=== PATIENT | male | born 1975 ===

== ENCOUNTER 2016-07-26 06:30 | Emergency (ER) | payer MEDICAID, OTHER ==
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
[2016-07-26 06:35] VITALS: BMI 21.8
[2016-07-26 06:42] VITALS: RESP 20; TEMP 98.2; O2SAT 100
[2016-07-26 07:37] VITALS: BP 126/84; PULSE 90
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
--- NOTE | 2016-07-26 08:23 | RAD ---
HISTORY: fall COMPARISON: 02/23/2016 TECHNIQUE: Chest PA and lateral FINDINGS: LUNGS: No active pulmonary disease. PLEURA: No significant pleural effusion identified. No pneumothorax apparent. CARDIOVASCULAR: Normal. OSSEOUS STRUCTURES: No significant abnormalities. VISUALIZED UPPER ABDOMEN: Normal. OTHER FINDINGS: None. IMPRESSION: No active disease.
== END 2016-07-26 07:57 ==
LOC: ED 06:30
DX: T14.8 Other injury of unspecified body region (principal); X58.XXXA Exposure to other specified factors, initial encounter; Y92.89 Other specified places as the place of occurrence of the external cause; Z65.3 Problems related to other legal circumstances

== ENCOUNTER 2016-10-01 01:41 | Inpatient (IN) | payer MEDICAID, OTHER ==
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
[2016-10-01 03:02] LABS: HEMOGLOBIN 14.3 gm/dL (14.0-18.0); MEAN CELL VOLUME 97.9 fL (80.0-105.0); MEAN CORPUSCULAR HEMOGLOBIN 33.5 pg (25.0-35.0); MEAN CORPUSCULAR HGB CONC 34.2 g/dl (31.0-37.0); MEAN PLATELET VOLUME 8.6 fl (7.0-11.0); RBC 4.27 10^6/uL (3.5-6.1); RED CELL DISTRIBUTION WIDTH 12.5 % (11.5-14.5); WHITE BLOOD COUNT 9.8 10^3/ul (4.5-11.0)
[2016-10-01 03:07] LABS: ALB/GLOB RATIO 1.3 (1.1-1.8); ALBUMIN 4.5 g/dL (3.0-4.8); ALT/SGPT 71 U/L (7-56); AST/SGOT 91 U/L (15-59); BLOOD UREA NITROGEN 11 mg/dL (7-21); CALCIUM 9.1 mg/dL (8.4-10.5); GFR AFRICAN-AMERICAN > 60; GFR NON-AFRICAN AMERICAN > 60
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
[2016-10-01] MEDS ORDERED: Amoxicillin-Clav 875-125 mg Tab PO STA (04:56)
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
[2016-10-01] MEDS: TDAP Vaccine 0.5 mL Syr IM ONE ×2 (06:35→06:47)
[2016-10-01] MEDS: Morphine 2 mg/ml ISec IVP PRN ×2 (06:50→16:59)
[2016-10-01] MEDS: Multivitamin With Minerals Tab PO SCH (08:15)
[2016-10-01] MEDS ORDERED: Multivitamin (MVI) 10 ML, Thiamine 100 MG, Folic Acid 1 MG in Sodium Chloride 0.9% 1,00... IV ONE (08:59)
[2016-10-01 09:35] LABS: BASO # 0.03 K/mm3 (0.0-2.0); BASO % 0.3 % (0.0-3.0); EOS % 0.2 % (1.5-5.0); GRAN % 70.4 % (50.0-68.0); HEMOGLOBIN 13.8 gm/dL (14.0-18.0); LYMPH # 2.3 (1.2-3.4); LYMPH % 20.3 % (22.0-35.0); MEAN CELL VOLUME 96.9 fL (80.0-105.0); MEAN CORPUSCULAR HEMOGLOBIN 32.7 pg (25.0-35.0); MEAN CORPUSCULAR HGB CONC 33.7 g/dl (31.0-37.0); MEAN PLATELET VOLUME 8.6 fl (7.0-11.0); MONO % 8.8 % (1.0-6.0); PLATELET COUNT 202 10^3/uL (120.0-450.0); RBC 4.22 10^6/uL (3.5-6.1); RED CELL DISTRIBUTION WIDTH 12.4 % (11.5-14.5); WHITE BLOOD COUNT 11.5 10^3/ul (4.5-11.0)
--- NOTE | 2016-10-01 10:40 | CARD ---
APPROVED REPORT EKG Measurement Heart [id number] <Conclusion> Normal sinus rhythm Possible Left atrial enlargement Borderline ECG
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
--- NOTE | 2016-10-01 12:44 | RAD ---
HISTORY: medical clearance COMPARISON: October 01, 2016. CT thorax FINDINGS: LUNGS: No active pulmonary disease. PLEURA: No significant pleural effusion identified, no pneumothorax apparent. CARDIOVASCULAR: Normal. OSSEOUS STRUCTURES: No significant abnormalities. VISUALIZED UPPER ABDOMEN: Normal. OTHER FINDINGS: None. IMPRESSION: No active disease.
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
[2016-10-01] MEDS ORDERED: Magnesium Sulfate 2 GM in Sodium Chloride 0.9% 100 ML IVPB ONE (18:17)
[2016-10-01 18:28] VITALS: BMI 22.0
[2016-10-02 07:46] LABS: BASO # 0.01 K/mm3 (0.0-2.0); BASO % 0.1 % (0.0-3.0); GRAN # 8.72 (1.4-6.5); GRAN % 87.2 % (50.0-68.0); HEMOGLOBIN 15.3 gm/dL (14.0-18.0); LYMPH # 1.1 (1.2-3.4); LYMPH % 10.8 % (22.0-35.0); MEAN CELL VOLUME 97.2 fL (80.0-105.0); MEAN PLATELET VOLUME 8.7 fl (7.0-11.0); MONO # 0.2 (0.1-0.6); MONO % 1.9 % (1.0-6.0); PLATELET COUNT 239 10^3/uL (120.0-450.0); RBC 4.63 10^6/uL (3.5-6.1); RED CELL DISTRIBUTION WIDTH 12.3 % (11.5-14.5)
[2016-10-02 08:17] LABS: ALB/GLOB RATIO 1.3 (1.1-1.8); ALBUMIN 4.4 g/dL (3.0-4.8); ALT/SGPT 53 U/L (7-56); AST/SGOT 46 U/L (15-59); BLOOD UREA NITROGEN 12 mg/dL (7-21); CALCIUM 9.3 mg/dL (8.4-10.5); GFR AFRICAN-AMERICAN > 60; GFR NON-AFRICAN AMERICAN > 60
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
--- NOTE | 2016-10-02 09:34 | CT ---
PROCEDURE: CT HEAD WITHOUT CONTRAST. HISTORY: f/u ? ich COMPARISON: 10/01/2016 TECHNIQUE: Axial computed tomography images were obtained through the head/brain without intravenous contrast. Radiation dose: Total exam DLP = 688 mGy-cm. This CT exam was performed using one or more of the following dose reduction techniques: Automated exposure control, adjustment of the mA and/or kV according to patient size, and/or use of iterative reconstruction technique. FINDINGS: HEMORRHAGE: There is a decrease in the amount of cortical and subarachnoid hemorrhage adjacent to the right-sided skull fracture BRAIN: No mass effect or edema. No atrophy or chronic microvascular ischemic changes. VENTRICLES: Unremarkable. No hydrocephalus. CALVARIUM: There is a comminuted mildly depressed fracture of the skull on the right side involving the temporal bone and frontal bone. PARANASAL SINUSES: Unremarkable as visualized. No significant inflammatory changes. MASTOID AIR CELLS: Unremarkable as visualized. No inflammatory changes. OTHER FINDINGS: None. IMPRESSION: Comminuted right-sided skull fracture. There is a decrease in the cortical and subarachnoid hemorrhage adjacent to the fracture site compared to initial study
[2016-10-02] MEDS: Multivitamin With Minerals Tab PO SCH (09:58)
[2016-10-02] MEDS: Pantoprazole 40 mg EC Tab PO SCH (09:58)
[2016-10-02 10:34] VITALS: O2SAT 100
--- NOTE | 2016-10-02 10:46 | MRI ---
PROCEDURE: MRI BRAIN WITHOUT CONTRAST HISTORY: brain contusion check for axonal injury COMPARISON: 10/01/2016 TECHNIQUE: Multiplanar, multisequence MR images of the brain were obtained without intravenous contrast enhancement. FINDINGS: HEMORRHAGE: Minimal residual hemorrhage in the right lateral frontal lobe. DWI: No evidence of an acute or early subacute infarction. BRAIN PARENCHYMA: No mass effect or edema. No atrophy or chronic microvascular ischemic changes. VENTRICLES: Unremarkable. No hydrocephalus. CRANIUM: Unremarkable. ORBITS: Grossly unremarkable. PARANASAL SINUSES/MASTOIDS: Clear VASCULAR SYSTEM: Skull base flow voids intact. OTHER FINDINGS: None. IMPRESSION: Minimal residual hemorrhage in the right lateral frontal lobe.
--- NOTE | 2016-10-02 11:09 | CP.PCM.PN ---
Subjective - Date & Time of Evaluation Date of Evaluation: 10/02/16 Time of Evaluation: 11:06 - Subjective Subjective: Mr. Montgomery was seen and examined today at bedside. He had occasional left arm shaking/rhythmic movements. No acute events overnight. He was awake, alert , conversant and followed commands normally. Objective - Vital Signs/Intake and Output Vital Signs (last 24 hours): Temp Pulse Resp BP Pulse Ox 97.5 F L 78 14 128/83 100 10/02/16 06:00 10/02/16 10:00 10/02/16 10:00 10/02/16 10:00 10/02/16 10:00 Intake and Output: 10/02/16 10/02/16 06:59 18:59 Intake Total 480 1020 Output Total 600 Balance 480 420 - Medications Medications: Current Medications Folic Acid (Folic Acid) 1 mg PO DAILY [facility] Last Admin: 10/02/16 09:57 Dose: 1 mg Lorazepam (Ativan) 2 mg IVP Q4H PRN; Protocol PRN Reason: Symptoms of alcohol withdrawl Last Admin: 10/01/16 21:58 Dose: 2 mg Morphine Sulfate (Morphine) 1 mg IVP Q4H PRN PRN Reason: Pain, severe (8-10) Last Admin: 10/01/16 16:59 Dose: 1 mg Multivitamins/Minerals (Therapeutic-M Tab) 1 tab PO 0800 [facility] Last Admin: 10/02/16 09:58 Dose: 1 tab Pantoprazole Sodium (Protonix Ec Tab) 40 mg PO ACB [facility] Last Admin: 10/02/16 09:58 Dose: 40 mg Thiamine HCl (Vitamin B1 Tab) 100 mg PO DAILY [facility] Last Admin: 10/02/16 09:58 Dose: 100 mg - Labs Labs: 10/02/16 07:41 10/02/16 07:41 - Neurological Exam Neurological Exam: Awake, CN II-XII Intact, Oriented x3, Reflexes Normal Neuro motor strength exam: Left Upper Extremity: 5, Right Upper Extremity: 5, Left Lower Extremity: 5, Right Lower Extremity: 5 Additional comments: Occasional left arm shaking movements. Assessment and Plan (1) Skull fracture with cerebral contusion Assessment & Plan: There is concern that he may be having focal seizures due to the right temporal lobe contusion. I will start him on prophylaxis with Keppra 500 mg Q12 hours. Continue conservative management. I reviewed the MRI and it appears to be improving. Will cancel the CT head for today since the MRI was done and is adequate. Status: Acute
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
[2016-10-02] MEDS ORDERED: Oxymetazoline 0.05% Nasal Spray (30 ml) NS SCH (13:30)
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
--- NOTE | 2016-10-02 16:03 | CP.PCM.PN ---
Subjective - Date & Time of Evaluation Date of Evaluation: 10/02/16 Time of Evaluation: 15:00 - Subjective Subjective: EEG REPORT: CONDITION OF THIS RECORDING: DROWSY DIAGNOSIS: EVALUATE FOR SEIZURE MEDICATIONS:l REVIEWED BY NURSE'S RECONCILIATION INTERPRETATION: THIS IS A 16 CHANNEL INTERNATIONAL RECORDING. THE BACKEND OF THIS TRACING WAS COMPOSED OF 68-9 CYCLES PER SECOND. THERE WAS SMALL AMOUNT OF BETA ACTIVITY OF 16-20 CPS IN THE RECORDING AND SMALL AMOUNT OF THETA ACTIVITY OF 5-7 CPS SEEN IN THIS TRACING. DROWSINESS WAS CHARACTERIZED BY MIXED BETA AND THETA ACTIVITIES. SLEEP WAS CHARACTERIZED BY VERTEX TRANSIENT WAVE, SLEEP SPINDLES, AND B/L SLOWING. PHOTIC STIMULATION SHOWED NO CHANGE IN THE TRACING. NO PAROXYSMAL ACTIVITY NOTED IN THIS RECORDING. EMG ARTIFICAT WAS SEEN. CONCLUSION: THIS IS A NORMAL EEG. NO SEIZURE ACTIVITY. Diamante ADAMES MD Objective - Vital Signs/Intake and Output Vital Signs (last 24 hours): Temp Pulse Resp BP Pulse Ox 97.1 F L 88 20 119/74 100 10/02/16 12:00 10/02/16 14:00 10/02/16 12:00 10/02/16 12:00 10/02/16 10:00 Intake and Output: 10/02/16 10/02/16 06:59 18:59 Intake Total 480 1020 Output Total 600 Balance 480 420 - Medications Medications: Current Medications Folic Acid (Folic Acid) 1 mg PO DAILY [facility] Last Admin: 10/02/16 09:57 Dose: 1 mg Levetiracetam (Keppra) 500 mg PO BID [facility] Last Admin: 10/02/16 11:37 Dose: 500 mg Lorazepam (Ativan) 2 mg IVP Q4H PRN; Protocol PRN Reason: Symptoms of alcohol withdrawl Last Admin: 10/01/16 21:58 Dose: 2 mg Morphine Sulfate (Morphine) 1 mg IVP Q4H PRN PRN Reason: Pain, severe (8-10) Last Admin: 10/01/16 16:59 Dose: 1 mg Multivitamins/Minerals (Therapeutic-M Tab) 1 tab PO 0800 [facility] Last Admin: 10/02/16 09:58 Dose: 1 tab Oxymetazoline HCl (Afrin 0.05%) 0 ml NS BID [facility] Pantoprazole Sodium (Protonix Ec Tab) 40 mg PO ACB [facility] Last Admin: 10/02/16 09:58 Dose: 40 mg Thiamine HCl (Vitamin B1 Tab) 100 mg PO DAILY [facility] Last Admin: 10/02/16 09:58 Dose: 100 mg - Labs Labs: 10/02/16 07:41 10/02/16 07:41
[2016-10-02] MEDS: Oxymetazoline 0.05% Nasal Spray (30 ml) NS SCH (17:35)
[2016-10-02] MEDS ORDERED: levETIRAcetam Solution 100 MG/ML BOTTLE PO SCH (18:00)
[2016-10-03 07:01] LABS: HEMOGLOBIN 13.6 gm/dL (14.0-18.0); MEAN CELL VOLUME 97.8 fL (80.0-105.0); MEAN CORPUSCULAR HEMOGLOBIN 32.9 pg (25.0-35.0); MEAN CORPUSCULAR HGB CONC 33.7 g/dl (31.0-37.0); MEAN PLATELET VOLUME 8.8 fl (7.0-11.0); RBC 4.13 10^6/uL (3.5-6.1); RED CELL DISTRIBUTION WIDTH 12.6 % (11.5-14.5); WHITE BLOOD COUNT 10.2 10^3/ul (4.5-11.0)
[2016-10-03 07:16] LABS: ALB/GLOB RATIO 1.3 (1.1-1.8); ALBUMIN 3.7 g/dL (3.0-4.8); ALT/SGPT 45 U/L (7-56); AST/SGOT 27 U/L (15-59); BLOOD UREA NITROGEN 15 mg/dL (7-21); CALCIUM 8.9 mg/dL (8.4-10.5); GFR AFRICAN-AMERICAN > 60; GFR NON-AFRICAN AMERICAN > 60
[2016-10-03 08:45] VITALS: BP 118/78; RESP 18; TEMP 97.6
[2016-10-03] MEDS: Pantoprazole 40 mg EC Tab PO SCH (09:13)
[2016-10-03] MEDS: Oxymetazoline 0.05% Nasal Spray (30 ml) NS SCH (09:13)
[2016-10-03] MEDS: Multivitamin With Minerals Tab PO SCH (09:15)
[2016-10-03] MEDS: Morphine 2 mg/ml ISec IVP PRN (09:16)
[2016-10-03 12:12] VITALS: PULSE 60
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
== END 2016-10-03 16:49 | disposition home or self-care (01) | DRG 84 ==
LOC: ED 01:41 → ERH 04:57 → 2RSO 07:04 → 3RNO 10-02 18:55
PROVIDERS: ADMIT Internal Medicine; ATTEND Hospitalist
DX: S02.19XA Other fracture of base of skull, initial encounter for closed fracture (principal); S06.339A Contusion and laceration of cerebrum, unspecified, with loss of consciousness of unspecified duration, initial encounter; Y04.0XXA Assault by unarmed brawl or fight, initial encounter; R56.9 Unspecified convulsions; F10.10 Alcohol abuse, uncomplicated; F19.10 Other psychoactive substance abuse, uncomplicated; M25.511 Pain in right shoulder; H53.8 Other visual disturbances; Y90.1 Blood alcohol level of 20-39 mg/100 ml; F17.210 Nicotine dependence, cigarettes, uncomplicated; Y93.89 Activity, other specified; Y92.9 Unspecified place or not applicable; Y99.9 Unspecified external cause status; Z83.3 Family history of diabetes mellitus

== ENCOUNTER 2018-03-18 11:19 | Inpatient (IN) | payer MEDICAID, OTHER ==
[2018-03-18] MEDS ORDERED: Sodium Chloride 0.9% 1,000 ML IV SCH (11:45)
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
[2018-03-18 11:55] LABS: BASO # 0.03 K/mm3 (0.0-2.0); BASO % 0.4 % (0.0-3.0); EOS # 0.1 (0.0-0.7); EOS % 1.2 % (1.5-5.0); GRAN # 4.03 (1.4-6.5); GRAN % 54.9 % (50.0-68.0); HEMOGLOBIN 14.8 g/dL (14.0-18.0); LYMPH # 2.7 (1.2-3.4); LYMPH % 36.2 % (22.0-35.0); MEAN CORPUSCULAR HEMOGLOBIN 33.1 pg (25.0-35.0); MEAN CORPUSCULAR HGB CONC 33.8 g/dl (31.0-37.0); MEAN PLATELET VOLUME 8.5 fl (7.0-11.0); MONO # 0.5 (0.1-0.6); MONO % 7.3 % (1.0-6.0); RBC 4.47 10^6/uL (3.5-6.1); RED CELL DISTRIBUTION WIDTH 12.6 % (11.5-14.5); WHITE BLOOD COUNT 7.4 10^3/uL (4.5-11.0)
[2018-03-18 12:14] LABS: ALB/GLOB RATIO 1.4 (1.1-1.8); ALBUMIN 4.5 g/dL (3.0-4.8); ALT/SGPT 36 U/L (7-56); AST/SGOT 45 U/L (17-59); BLOOD UREA NITROGEN 10 mg/dL (7-21); CALCIUM 9.4 mg/dL (8.4-10.5); GFR NON-AFRICAN AMERICAN > 60
[2018-03-18 12:29] LABS: TROPONIN I < 0.01 ng/mL
--- NOTE | 2018-03-18 14:26 | CP.PCM.HP ---
<Salima Reinoso - Last Filed: 03/18/18 15:12> History of Present Illness - History of Present Illness History of Present Illness: Resident History & Physical for Hospitalist Service Patient is a 43 year old male with past medical history SVT and polysubstance abuse presenting with chief complaint of palpitations that began this morning. He stated that his symptoms began while he was at rest. He also had associated chest pain localized to his right anterior chest, shortness of breath and dizziness. Patient states he had two 24 oz beers yesterday and that his last alcoholic intake was yesterday late afternoon. He admits to daily marijuana use but denies any other illicit drug use including heroine and cocaine. Of note, patient has been previously admitted for SVT however he signed out AMA at that time. Denies fevers, chills, nausea, vomiting, abdominal pain, constipation, diarrhea, dysuria. PMH: SVT (2014), polysubstance abuse PSH: dental surgery SHx: 6-10 cigarettes a day for past 20 years, 2 alcoholic drinks per day, marijuana. Denies caffeine use. Allergies: NKDA Family Hx: mother(dementia); father (DM) PMD: none 12 point ROS negative except as stated in HPI Present on Admission - Present on Admission Any Indicators Present on Admission: No Review of Systems - Review of Systems All systems: reviewed and no additional remarkable complaints except (as stated in HPI) Past Patient History - Infectious Disease Hx of Infectious Diseases: None - Past Social History Smoking Status: Heavy Smoker > 10 Cigarettes Daily - CARDIAC Hx Cardiac Disorders: No - PULMONARY Hx Respiratory Disorders: No - NEUROLOGICAL Hx Neurological Disorder: No - HEENT Hx HEENT Problems: Yes Other/Comment: Left eye injury - RENAL Hx Chronic Kidney Disease: No - ENDOCRINE/METABOLIC Hx Endocrine Disorders: No - HEMATOLOGICAL/ONCOLOGICAL Hx Blood Disorders: No - INTEGUMENTARY Hx Dermatological Problems: No - MUSCULOSKELETAL/RHEUMATOLOGICAL Hx Falls: No - GASTROINTESTINAL Hx Gastrointestinal Disorders: No - GENITOURINARY/GYNECOLOGICAL Hx Genitourinary Disorders: No - PSYCHIATRIC Hx Psychophysiologic Disorder: No Hx Substance Use: Yes (marijuna) - SURGICAL HISTORY Hx Surgeries: No - ANESTHESIA Hx Anesthesia: No Hx Anesthesia Reactions: No Hx Malignant Hyperthermia: No Meds Allergies/Adverse Reactions: Allergies Allergy/AdvReac Type Severity Reaction Status Date / Time No Known Allergies Allergy Verified 03/18/18 11:28 Physical Exam - Constitutional Appears: Non-toxic, No Acute Distress - Head Exam Head Exam: ATRAUMATIC, NORMOCEPHALIC - Eye Exam Eye Exam: EOMI, Normal appearance, PERRL - ENT Exam ENT Exam: Mucous Membranes Moist, Normal External Ear Exam - Neck Exam Neck exam: Positive for: Full Rom. Negative for: Lymphadenopathy, Tenderness, Thyromegaly - Respiratory Exam Respiratory Exam: Chest Wall Tenderness, Wheezes, NORMAL BREATHING PATTERN. absent: Accessory Muscle Use, Respiratory Distress - Cardiovascular Exam Cardiovascular Exam: Tachycardia, REGULAR RHYTHM, +S1, +S2. absent: Gallop, Rubs, Systolic Murmur - GI/Abdominal Exam GI & Abdominal Exam: Normal Bowel Sounds, Soft. absent: Distended, Firm, Guarding, Organomegaly, Rebound, Rigid, Tenderness - Extremities Exam Extremities exam: Positive for: normal capillary refill, normal inspection, pedal pulses present. Negative for: pedal edema, tenderness - Back Exam Back exam: NORMAL INSPECTION - Neurological Exam Neurological exam: Alert, CN II-XII Intact, Oriented x3 - Psychiatric Exam Psychiatric exam: Normal Affect, Normal Mood - Skin Skin Exam: Dry, Intact, Warm Results - Vital Signs Recent Vital Signs: Last Vital Signs Temp 98.8 F 03/18/18 11:26 Pulse 112 H 03/18/18 13:10 Resp 18 03/18/18 13:10 BP 117/76 03/18/18 13:10 Pulse Ox 100 03/18/18 13:10 - Labs Result Diagrams: 03/18/18 11:35 03/18/18 11:35 Labs: Laboratory Results - last 24 hr 03/18/18 03/18/18 03/18/18 11:35 11:35 11:35 WBC 7.4 RBC 4.47 Hgb 14.8 Hct 43.8 MCV 98.0 MCH 33.1 MCHC 33.8 RDW 12.6 Plt Count 279 MPV 8.5 Gran % 54.9 Lymph % (Auto) 36.2 H Dod[place] % (Auto) 7.3 H Eos % (Auto) 1.2 L Baso % (Auto) 0.4 Gran # 4.03 Lymph # (Auto) 2.7 Doddridge # (Auto) 0.5 Eos # (Auto) 0.1 Baso # (Auto) 0.03 Sodium 139 Potassium 4.3 Chloride 107 Carbon Dioxide 25 Anion Gap 11 BUN 10 Creatinine 0.8 Est GFR ( Amer) > 60 Est GFR (Non-Af Amer) > 60 Random Glucose 254 H Calcium 9.4 Magnesium 2.0 Total Bilirubin 1.2 AST 45 ALT 36 Alkaline Phosphatase 64 Troponin I < 0.01 D Total Protein 7.8 Albumin 4.5 Globulin 3.3 Albumin/Globulin Ratio 1.4 TSH 3rd Generation 0.56 Assessment & Plan - Assessment and Plan (Free Text) Assessment: Patient is a 43 year old male with past medical history SVT and polysubstance abuse presenting with chief complaint of palpitations and admitted for workup and management of SVT. Plan: Palpitations - Given aspirin 325 mg, adenosine 6 mg, 12 mg in ED - EKG showed SVT - CXR unremarkable - troponin neg x1 - ECHO - thyroid function tests - Hgba1c - lipid panel - d-dimer - Cardiology consulted. Appreciate recs. - Cardizem 30 mg PO QID Polysubstance abuse - followup UDS, alcohol level - CIWA protocol - thiamine, folic acid, MVI - Ativan 1 mg IV Q4H [place] - counseled on cessation PPX - SCDs - No GI ppx indicated at this time Case discussed with Dr. Ra Reinoso PGY-1 - Date & Time Date: 03/18/18 Time: 13:42 <Justin Knapp - Last Filed: 03/18/18 15:28> Results - Vital Signs Recent Vital Signs: Last Vital Signs Temp 98.8 F 03/18/18 11:26 Pulse 92 H 03/18/18 13:58 Resp 18 03/18/18 13:10 BP 140/91 H 03/18/18 13:58 Pulse Ox 100 03/18/18 13:10 - Labs Result Diagrams: 03/18/18 11:35 03/18/18 11:35 Labs: Laboratory Results - last 24 hr 03/18/18 03/18/18 03/18/18 11:35 11:35 11:35 WBC 7.4 RBC 4.47 Hgb 14.8 Hct 43.8 MCV 98.0 MCH 33.1 MCHC 33.8 RDW 12.6 Plt Count 279 MPV 8.5 Gran % 54.9 Lymph % (Auto) 36.2 H [place] % (Auto) 7.3 H Eos % (Auto) 1.2 L Baso % (Auto) 0.4 Gran # 4.03 Lymph # (Auto) 2.7 Dod[place] # (Auto) 0.5 Eos # (Auto) 0.1 Baso # (Auto) 0.03 D-Dimer, Quantitative Sodium 139 Potassium 4.3 Chloride 107 Carbon Dioxide 25 Anion Gap 11 BUN 10 Creatinine 0.8 Est GFR ( Amer) > 60 Est GFR (Non-Af Amer) > 60 Random Glucose 254 H Calcium 9.4 Magnesium 2.0 Total Bilirubin 1.2 AST 45 ALT 36 Alkaline Phosphatase 64 Troponin I < 0.01 D Total Protein 7.8 Albumin 4.5 Globulin 3.3 Albumin/Globulin Ratio 1.4 TSH 3rd Generation 0.56 03/18/18 14:46 WBC RBC Hgb Hct MCV MCH MCHC RDW Plt Count MPV Gran % Lymph % (Auto) Dod[place]idge % (Auto) Eos % (Auto) Baso % (Auto) Gran # Lymph # (Auto) Dod[place]idge # (Auto) Eos # (Auto) Baso # (Auto) D-Dimer, Quantitative < 200 Sodium Potassium Chloride Carbon Dioxide Anion Gap BUN Creatinine Est GFR ( Amer) Est GFR (Non-Af Amer) Random Glucose Calcium Magnesium Total Bilirubin AST ALT Alkaline Phosphatase Troponin I Total Protein Albumin Globulin Albumin/Globulin Ratio TSH 3rd Generation Attending/Attestation - Attestation I have personally seen and examined this patient.: Yes I have fully participated in the care of the patient.: Yes I have reviewed all pertinent clinical information: Yes Notes (Text): 03/18/18 15:23 Medical record note made by the resident after discussion with my direction and input after the patient was personally seen and examined by me. I have reviewed the chart and agree that the record accurately reflects by personal performance of the history, physical exam, data review, and medical decision-making, in the course for the patient. I have also personally directed the plan of care. 43 year old male with past medical history SVT, alcohol ,polysubstance abuse and non compliance is admitted with episode of SVT, converted to NSR after IV Adenosine . Continue Cardizem, will follow up Echo and Throid function.We will monitor patient in telemetry. We will follow up cardiology consult. We will also watch patient for alcohol withdrawal. Management plan was discussed in detail with patient. Education was provided.
--- NOTE | 2018-03-18 14:27 | RAD ---
Date of service: 03/18/2018 HISTORY: cp COMPARISON: Chest radiographs 10/01/2016. FINDINGS: LUNGS: No active pulmonary disease. PLEURA: No significant pleural effusion identified, no pneumothorax apparent. CARDIOVASCULAR: No aortic atherosclerotic calcification present. Normal cardiac size. No pulmonary vascular congestion. OSSEOUS STRUCTURES: No significant abnormalities. VISUALIZED UPPER ABDOMEN: Normal. OTHER FINDINGS: None. IMPRESSION: No interval acute cardiopulmonary disease appreciated.
[2018-03-18 15:25] LABS: HDL CHOLESTEROL 99 mg/dL (29-60)
[2018-03-18 15:36] LABS: LDL CHOLESTEROL 61 mg/dL (0-129)
[2018-03-18 15:42] LABS: FREE T4 0.93 ng/dL (0.78-2.19); T4 5.5 ug/dL (5.5-11.0)
[2018-03-18 15:56] LABS: T3 1.23 ng/mL (0.97-1.69)
--- NOTE | 2018-03-18 17:59 | CON ---
DATE: 03/18/2018 CARDIOLOGY CONSULTATION REASON FOR CONSULTATION: SVT. HISTORY OF PRESENT ILLNESS: The patient is a 43-year-old male, who has a history of multiple rib fractures, who was celebrating last night by smoking marijuana and drinking, and around 10 o'clock in the morning, he experienced palpitations and presented to the emergency room, was found to be in SVT that converted after 12 mg of Adenocard. The patient did receive the first dose of 6 mg. The patient denies any prior similar episode. The patient is unaware of any cardiac history in the past. SOCIAL HISTORY: The patient is a smoker, drinker, and heroin abuser. MEDICATIONS: The patient is currently on normal saline at 100 mL an hour. REVIEW OF SYSTEMS: No nausea or vomiting. No fevers or chills. PHYSICAL EXAMINATION: GENERAL: The patient is a middle-aged male, who does not appear to be in any distress. VITAL SIGNS: Blood pressure 129/91, heart rate 118, sinus tachycardia on the monitor. Temperature 98.8, respirations 18. HEENT: Normocephalic. NECK: No JVD. CHEST: Clear. HEART: Heart sounds regular. EXTREMITIES: No edema. LABORATORY DATA: CBC: Hemoglobin and hematocrit are 14.8 and 43.8, white count and platelet count are within normal limits. SMA-7 and the rest of the labs are still pending. I did review the EKG, which revealed an SVT, and currently, monitor shows sinus tachycardia. ASSESSMENT: 1. Paroxysmal reentrant supraventricular tachycardia. 2. Opiate and alcohol abuse. RECOMMENDATIONS: Admit the patient to telemetry, start Cardizem at 30 mg 4 times a day, obtain an echocardiogram and urine drug screen and alcohol level. Gilberto De Guzman MD
[2018-03-18] MEDS ORDERED: Albuterol-Ipratrop 3 mg / 0.5 (3 ml) UD IH PRN (19:55)
[2018-03-18] MEDS ORDERED: Dextrose 50% SYRINGE Inj (50 ml) IV PRN (19:57)
[2018-03-18] MEDS ORDERED: Albuterol-Ipratrop 3 mg / 0.5 (3 ml) UD IH SCH (20:00)
[2018-03-18 20:53] VITALS: BMI 20.2
[2018-03-18] MEDS ORDERED: Influenza Vaccine 60 mcg/0.5 mL SYR (4YR UP) IM ONE (20:54)
[2018-03-18] MEDS ORDERED: Pneumococcal 23-Valent Vaccine IM ONE (20:54)
[2018-03-18] MEDS: Insulin Reg-LOW-Coverage SC SCH (22:00)
[2018-03-19 06:32] LABS: BASO # 0.03 K/mm3 (0.0-2.0); BASO % 0.4 % (0.0-3.0); EOS # 0.2 (0.0-0.7); EOS % 2.7 % (1.5-5.0); GRAN # 4.16 (1.4-6.5); GRAN % 53.9 % (50.0-68.0); HEMOGLOBIN 14.4 g/dL (14.0-18.0); LYMPH # 2.7 (1.2-3.4); LYMPH % 35.4 % (22.0-35.0); MEAN CELL VOLUME 99.5 fl (80.0-105.0); MEAN CORPUSCULAR HGB CONC 33.1 g/dl (31.0-37.0); MEAN PLATELET VOLUME 8.6 fl (7.0-11.0); MONO # 0.6 (0.1-0.6); MONO % 7.6 % (1.0-6.0); RBC 4.37 10^6/uL (3.5-6.1); RED CELL DISTRIBUTION WIDTH 12.7 % (11.5-14.5); WHITE BLOOD COUNT 7.7 10^3/uL (4.5-11.0)
[2018-03-19 06:35] LABS: BARBITURATES, UR NEGATIVE (NEGATIVE); BENZODIAZEPINES, UR NEGATIVE (NEGATIVE); OPIATES, UR NEGATIVE (NEGATIVE); PHENCYCLIDINE, UR POSITIVE (NEGATIVE)
[2018-03-19 06:48] LABS: ALB/GLOB RATIO 1.2 (1.1-1.8); ALBUMIN 3.9 g/dL (3.0-4.8); ALT/SGPT 33 U/L (7-56); AST/SGOT 34 U/L (17-59); BLOOD UREA NITROGEN 11 mg/dL (7-21); CALCIUM 9.1 mg/dL (8.4-10.5); GFR NON-AFRICAN AMERICAN > 60
--- NOTE | 2018-03-19 06:52 | CP.PCM.PN ---
<ReinosoYesikaozzie L - Last Filed: 03/19/18 15:27> Subjective - Date & Time of Evaluation Date of Evaluation: 03/19/18 Time of Evaluation: 06:52 - Subjective Subjective: Resident Progress Note for Hospitalist Service Patient examined at bedside. No acute events overnight. Patient denies any complaints at this time. Patient was provided counseling again regarding his polysubstance abuse. Denies fevers, chills, chest pain, palpitations, shortness of breath, abdominal pain, diarrhea, dysuria. Objective - Vital Signs/Intake and Output Vital Signs (last 24 hours): Temp Pulse Resp BP Pulse Ox 97.6 F 75 18 142/95 H 100 03/19/18 05:57 03/19/18 05:57 03/19/18 05:57 03/19/18 05:57 03/19/18 05:57 Intake and Output: 03/18/18 03/19/18 18:59 06:59 Intake Total 240 Balance 240 - Medications Medications: Current Medications Albuterol/Ipratropium (Duoneb 3 Mg/0.5 Mg (3 Ml) Ud) 3 ml IH [id number] PRN PRN Reason: Shortness of Breath Dextrose (Dextrose 50% Inj) 0 ml IV STAT PRN; Protocol PRN Reason: Hypoglycemia Protocol Diltiazem HCl (Cardizem) 30 mg PO QID [facility] Last Admin: 03/18/18 21:42 Dose: 30 mg Folic Acid (Folic Acid) 1 mg PO DAILY [facility] Last Admin: 03/18/18 20:17 Dose: 1 mg Dextrose (Dextrose 5% In Water 1000 Ml) 1,000 mls @ 0 mls/hr IV .Q0M PRN; Protocol PRN Reason: Hypoglycemia Protocol Insulin Human Regular (Humulin R Low) 0 units SC ACHS [facility]; Protocol Last Admin: 03/18/18 22:00 Dose: Not Given Lorazepam (Ativan) 1 mg IVP Q4H PRN; Protocol PRN Reason: Symptoms of alcohol withdrawl Last Admin: 03/18/18 21:42 Dose: 1 mg Multivitamins/Minerals (Therapeutic-M Tab) 1 tab PO 0800 [facility] Thiamine HCl (Vitamin B1 Tab) 100 mg PO DAILY [facility] Last Admin: 03/18/18 20:17 Dose: 100 mg - Labs Labs: 03/19/18 05:20 03/19/18 05:20 - Additional Findings Additional findings: - Constitutional Appears: Non-toxic, No Acute Distress - Head Exam Head Exam: ATRAUMATIC, NORMOCEPHALIC - Eye Exam Eye Exam: EOMI, Normal appearance - ENT Exam ENT Exam: Mucous Membranes Moist - Respiratory Exam Respiratory Exam: Chest Wall Tenderness, Wheezes, NORMAL BREATHING PATTERN. absent: Accessory Muscle Use, Respiratory Distress - Cardiovascular Exam Cardiovascular Exam: Tachycardia, REGULAR RHYTHM, +S1, +S2. absent: Gallop, Rubs, Systolic Murmur - GI/Abdominal Exam GI & Abdominal Exam: Normal Bowel Sounds, Soft. absent: Tenderness - Extremities Exam Extremities exam: Positive for: normal capillary refill, normal inspection. Negative for: pedal edema, tenderness - Back Exam Back exam: NORMAL INSPECTION - Neurological Exam Neurological exam: Alert, CN II-XII Intact, Oriented x3 - Psychiatric Exam Psychiatric exam: Normal Affect, Normal Mood - Skin Skin Exam: Dry, Intact, Warm Assessment and Plan - Assessment and Plan (Free Text) Assessment: Patient is a 43 year old male with past medical history SVT and polysubstance abuse presenting with chief complaint of palpitations and admitted for workup and management of SVT. Plan: Palpitations - CXR unremarkable - troponin neg x1 - thyroid function tests, lipid panel wnl - Hgba1c 6.8 - d-dimer not elevated - Cardiology consulted. Appreciate recs. - Cardizem 30 mg PO QID - followup ECHO Polysubstance abuse - alcohol <10, UDS positive for phencyclidines, cannabinoids - [facility] protocol - thiamine, folic acid, MVI - Ativan 1 mg IV Q4H PRN - counseled on cessation PPX - SCDs - No GI ppx indicated at this time Case discussed with Dr. Ra Reinoso PGY-1 <Justin Knapp - Last Filed: 03/19/18 16:03> Objective - Vital Signs/Intake and Output Vital Signs (last 24 hours): Temp Pulse Resp BP Pulse Ox 98.1 F 85 20 126/89 100 03/19/18 12:00 03/19/18 14:24 03/19/18 12:00 03/19/18 14:24 03/19/18 05:57 Intake and Output: 03/19/18 03/19/18 06:59 18:59 Intake Total 240 Balance 240 - Medications Medications: Current Medications Albuterol/Ipratropium (Duoneb 3 Mg/0.5 Mg (3 Ml) Ud) 3 ml IH [id number] PRN PRN Reason: Shortness of Breath Carvedilol (Coreg) 3.125 mg PO BID [facility] Dextrose (Dextrose 50% Inj) 0 ml IV STAT PRN; Protocol PRN Reason: Hypoglycemia Protocol Diltiazem HCl (Cardizem) 30 mg PO QID [facility] Last Admin: 03/19/18 14:24 Dose: 30 mg Folic Acid (Folic Acid) 1 mg PO DAILY [facility] Last Admin: 03/19/18 10:05 Dose: 1 mg Dextrose (Dextrose 5% In Water 1000 Ml) 1,000 mls @ 0 mls/hr IV .Q0M PRN; Protocol PRN Reason: Hypoglycemia Protocol Insulin Human Regular (Humulin R Low) 0 units SC ACHS [facility]; Protocol Last Admin: 03/19/18 12:00 Dose: Not Given Lorazepam (Ativan) 1 mg IVP Q4H PRN; Protocol PRN Reason: Symptoms of alcohol withdrawl Last Admin: 03/18/18 21:42 Dose: 1 mg Losartan Potassium (Cozaar) 12.5 mg PO DAILY [facility] Multivitamins/Minerals (Therapeutic-M Tab) 1 tab PO 0800 [facility] Last Admin: 03/19/18 08:20 Dose: 1 tab Thiamine HCl (Vitamin B1 Tab) 100 mg PO DAILY [facility] Last Admin: 03/19/18 10:05 Dose: 100 mg - Labs Labs: 03/19/18 05:20 03/19/18 05:20 Attending/Attestation - Attestation I have personally seen and examined this patient.: Yes I have fully participated in the care of the patient.: Yes I have reviewed all pertinent clinical information, including history, physical exam and plan: Yes Notes (Text): 03/19/18 15:59 Medical record note made by the resident after discussion with my direction and input after the patient was personally seen and examined by me. I have reviewed the chart and agree that the record accurately reflects by personal performance of the history, physical exam, data review, and medical decision-making, in the course for the patient. I have also personally directed the plan of care. 43 year old male with past medical history SVT, alcohol ,polysubstance abuse and non compliance was admitted with episode of SVT, converted to NSR after IV Adenosine . Echo showed severe systolic dysfunction EF 30%.Cardiology is following, will need ischemic work up to find the etiology of cardiomyopathy. Patient is euvolemic. There is no sign of alcohol withdrawal at this time. Management plan was discussed in detail with patient. Education was provided. 03/19/18 16:00
[2018-03-19] MEDS: Insulin Reg-LOW-Coverage SC SCH ×4 (08:11→23:00)
[2018-03-19] MEDS: Multivitamin With Minerals Tab PO SCH (08:20)
--- NOTE | 2018-03-19 11:06 | CARD ---
APPROVED REPORT Date of service: 03/18/2018 EKG Measurement Heart [id number] <Conclusion> Supraventricular tachycardia, new Rightward axis Incomplete right bundle branch block Nonspecific ST abnormality LVH by voltage
--- NOTE | 2018-03-19 11:07 | CARD ---
APPROVED REPORT Date of service: 03/18/2018 EKG Measurement Heart [id number] <Conclusion> Sinus tachycardia, new LVH by voltage
--- NOTE | 2018-03-19 14:31 | PN ---
DATE: 03/19/2018 SUBJECTIVE: The patient denies any palpitation or recurrence of SVT. She denies any chest pain. PHYSICAL EXAMINATION VITAL SIGNS: Blood pressure 126/88, heart rate 84, temperature 97.6, respirations 18. HEENT: Normocephalic. CHEST: Clear. HEART: S1, S2 regular. EXTREMITIES: No edema. LABORATORY DATA: Hemoglobin hematocrit, white count, and platelet count are within normal limit. D-dimer is less than 200. Sodium 137, potassium 4.4, chloride 108, CO2 26, glucose 136, BUN 11, creatinine 0.7. Troponin is less than 0.01. Urine drug screen is positive for cannabinoids and phencyclidine. ASSESSMENT: 1. Paroxysmal supraventricular tachycardia. 2. Marijuana and phencyclidine abuse. RECOMMENDATION: Continue current thiamine, folic acid and Cardizem at 30 mg 4 times daily. I will follow echocardiac study performed today. Gilberto De Guzman MD
--- NOTE | 2018-03-19 15:51 | CARD ---
APPROVED REPORT Date of service: 03/19/2018 EXAM: Two-dimensional and M-mode echocardiogram with Doppler and color Doppler. INDICATION SVT 2D DIMENSIONS Left Atrium (2D)3.3 (1.6-4.0cm)IVSd0.9 (0.7-1.1cm) LVDd4.8 (3.9-5.9cm)PWd0.9 (0.7-1.1cm) LVDs4.2 (2.5-4.0cm)FS (%) 14.3 % LVEF (%)30.5 (>50%) M-Mode DIMENSIONS Aortic Root2.90 (2.2-3.7cm)Aortic Cusp Exc.1.90 (1.5-2.0cm) Aortic Valve AoV Peak Cmjtulai28.0cm/Matty Peak GR.4mmHg Mitral Valve E/A ratio0.0 TDI E/Lateral E'0.0E/Medial E'0.0 Tricuspid Valve TR Peak [id number] [id number] Peak Gr.7mmHg [id number] LEFT VENTRICLE The left ventricle is normal size. There is normal left ventricular wall thickness. The systolic function is severely impaired. There is global hypokinesis of the left ventricle. Transmitral Doppler flow pattern is abnormal. No left ventricle thrombus noted on this study. RIGHT VENTRICLE The right ventricle is normal size. There is normal right ventricular wall thickness. Systolic function is mildly reduced. ATRIA The left atrium size is normal. The right atrium size is normal. The interatrial septum is intact with no evidence for an atrial septal defect. AORTIC VALVE The aortic valve is normal in structure. No aortic regurgitation is present. There is no aortic valvular stenosis. MITRAL VALVE The mitral valve is normal in structure. Mitral regurgitation is trace to mild. TRICUSPID VALVE The tricuspid valve is normal in structure. There is no tricuspid valve regurgitation noted. PULMONIC VALVE The pulmonary valve is normal in structure. There is no pulmonic valvular regurgitation. GREAT VESSELS The aortic root is normal in size. The IVC is normal in size and collapses >50% with inspiration. PERICARDIAL EFFUSION There is no pericardial effusion. <Conclusion> The left ventricle is normal size. There is normal left ventricular wall thickness. The systolic function is severely impaired. There is global hypokinesis of the left ventricle. No left ventricle thrombus noted on this study. Mitral regurgitation is trace to mild.
[2018-03-20 06:57] LABS: BASO # 0.03 K/mm3 (0.0-2.0); BASO % 0.4 % (0.0-3.0); EOS # 0.2 (0.0-0.7); EOS % 2.6 % (1.5-5.0); GRAN # 4.59 (1.4-6.5); GRAN % 60.3 % (50.0-68.0); HEMOGLOBIN 14.6 g/dL (14.0-18.0); LYMPH # 2.3 (1.2-3.4); LYMPH % 29.6 % (22.0-35.0); MEAN CELL VOLUME 99.5 fl (80.0-105.0); MEAN CORPUSCULAR HGB CONC 33.1 g/dl (31.0-37.0); MEAN PLATELET VOLUME 8.8 fl (7.0-11.0); MONO # 0.5 (0.1-0.6); MONO % 7.1 % (1.0-6.0); RBC 4.43 10^6/uL (3.5-6.1); RED CELL DISTRIBUTION WIDTH 12.6 % (11.5-14.5); WHITE BLOOD COUNT 7.6 10^3/uL (4.5-11.0)
[2018-03-20 07:40] LABS: ALB/GLOB RATIO 1.2 (1.1-1.8); ALBUMIN 3.9 g/dL (3.0-4.8); ALT/SGPT 37 U/L (7-56); AST/SGOT 41 U/L (17-59); BLOOD UREA NITROGEN 10 mg/dL (7-21); CALCIUM 9.2 mg/dL (8.4-10.5); GFR NON-AFRICAN AMERICAN > 60
[2018-03-20] MEDS: Insulin Reg-LOW-Coverage SC SCH ×4 (08:27→22:36)
[2018-03-20] MEDS: Multivitamin With Minerals Tab PO SCH (10:05)
--- NOTE | 2018-03-20 12:45 | CP.PCM.PN ---
<Aj Evans - Last Filed: 03/21/18 13:06> Subjective - Date & Time of Evaluation Date of Evaluation: 03/20/18 Time of Evaluation: 06:00 - Subjective Subjective: Patient seen and examined bedside. No acute issues overnight. Patient denies palpitations, chest pain, SOB, or any other complaints at this time. Objective - Vital Signs/Intake and Output Vital Signs (last 24 hours): Temp Pulse Resp BP Pulse Ox 97.1 F L 82 20 122/86 100 03/20/18 12:00 03/20/18 12:00 03/20/18 12:00 03/20/18 12:00 03/19/18 05:57 Intake and Output: 03/20/18 03/20/18 06:59 18:59 Intake Total 240 Balance 240 - Medications Medications: Current Medications Albuterol/Ipratropium (Duoneb 3 Mg/0.5 Mg (3 Ml) Ud) 3 ml IH [id number] PRN PRN Reason: Shortness of Breath Carvedilol (Coreg) 3.125 mg PO BID [facility] Last Admin: 03/20/18 10:06 Dose: 3.125 mg Dextrose (Dextrose 50% Inj) 0 ml IV STAT PRN; Protocol PRN Reason: Hypoglycemia Protocol Diltiazem HCl (Cardizem) 30 mg PO QID [facility] Last Admin: 03/20/18 10:06 Dose: 30 mg Folic Acid (Folic Acid) 1 mg PO DAILY [facility] Last Admin: 03/20/18 10:06 Dose: 1 mg Dextrose (Dextrose 5% In Water 1000 Ml) 1,000 mls @ 0 mls/hr IV .Q0M PRN; Protocol PRN Reason: Hypoglycemia Protocol Insulin Human Regular (Humulin R Low) 0 units SC ACHS [facility]; Protocol Last Admin: 03/20/18 08:27 Dose: Not Given Lorazepam (Ativan) 1 mg IVP Q4H PRN; Protocol PRN Reason: Symptoms of alcohol withdrawl Last Admin: 03/19/18 21:34 Dose: 1 mg Losartan Potassium (Cozaar) 12.5 mg PO DAILY [facility] Last Admin: 03/20/18 10:05 Dose: 12.5 mg Multivitamins/Minerals (Therapeutic-M Tab) 1 tab PO 0800 [facility] Last Admin: 03/20/18 10:05 Dose: 1 tab Nicotine (Nicoderm Cq) 1 patch TD DAILY [facility] Last Admin: 03/20/18 10:05 Dose: 1 patch Thiamine HCl (Vitamin B1 Tab) 100 mg PO DAILY [facility] Last Admin: 03/20/18 10:05 Dose: 100 mg - Labs Labs: 03/20/18 07:00 03/20/18 06:30 - Constitutional Appears: Well, Non-toxic, No Acute Distress - Eye Exam Eye Exam: EOMI, Normal appearance - ENT Exam ENT Exam: Mucous Membranes Moist - Respiratory Exam Respiratory Exam: Clear to Ausculation Bilateral, NORMAL BREATHING PATTERN - Cardiovascular Exam Cardiovascular Exam: REGULAR RHYTHM, +S1, +S2 - GI/Abdominal Exam GI & Abdominal Exam: Soft. absent: Tenderness - Extremities Exam Extremities Exam: absent: Pedal Edema - Neurological Exam Neurological Exam: Alert, Awake, Oriented x3 Assessment and Plan - Assessment and Plan (Free Text) Assessment: Patient is a 43 year old male with past medical history SVT and polysubstance abuse presenting with chief complaint of palpitations and admitted for workup and management of SVT. Plan: Palpitations - CXR unremarkable - thyroid function tests, lipid panel wnl - Hgba1c 6.8 - d-dimer not elevated - Cardiology consulted. Appreciate recs. - Cardizem 30 mg PO QID - Echo showing EF of 30.5% Polysubstance abuse - alcohol <10, UDS positive for phencyclidines, cannabinoids - [facility] protocol - thiamine, folic acid, MVI - Ativan 1 mg IV Q4H PRN - counseled on cessation PPX - SCDs - No GI ppx indicated at this time <Justin Knapp - Last Filed: 03/21/18 16:04> Objective - Vital Signs/Intake and Output Vital Signs (last 24 hours): Temp Pulse Resp BP Pulse Ox 97.1 F L 87 19 115/73 98 03/21/18 12:00 03/21/18 15:07 03/21/18 12:00 03/21/18 12:00 03/21/18 06:00 Intake and Output: 03/21/18 03/21/18 06:59 18:59 Intake Total 1140 Output Total 2 Balance 1138 - Medications Medications: Current Medications Albuterol/Ipratropium (Duoneb 3 Mg/0.5 Mg (3 Ml) Ud) 3 ml IH [id number] PRN PRN Reason: Shortness of Breath Carvedilol (Coreg) 3.125 mg PO BID [facility] Last Admin: 03/21/18 09:54 Dose: 3.125 mg Dextrose (Dextrose 50% Inj) 0 ml IV STAT PRN; Protocol PRN Reason: Hypoglycemia Protocol Diltiazem HCl (Cardizem) 30 mg PO QID [facility] Last Admin: 03/21/18 15:07 Dose: 30 mg Folic Acid (Folic Acid) 1 mg PO DAILY [facility] Last Admin: 03/21/18 09:53 Dose: 1 mg Dextrose (Dextrose 5% In Water 1000 Ml) 1,000 mls @ 0 mls/hr IV .Q0M PRN; Protocol PRN Reason: Hypoglycemia Protocol Insulin Human Regular (Humulin R Low) 0 units SC ACHS [facility]; Protocol Last Admin: 03/21/18 07:30 Dose: Not Given Lorazepam (Ativan) 1 mg IVP Q4H PRN; Protocol PRN Reason: Symptoms of alcohol withdrawl Last Admin: 03/19/18 21:34 Dose: 1 mg Losartan Potassium (Cozaar) 25 mg PO DAILY [facility] Multivitamins/Minerals (Therapeutic-M Tab) 1 tab PO 0800 [facility] Last Admin: 03/21/18 10:00 Dose: 1 tab Nicotine (Nicoderm Cq) 1 patch TD DAILY [facility] Last Admin: 03/21/18 09:56 Dose: 1 patch Thiamine HCl (Vitamin B1 Tab) 100 mg PO DAILY [facility] Last Admin: 03/21/18 09:53 Dose: 100 mg - Labs Labs: 03/21/18 06:00 03/21/18 06:00 Attending/Attestation - Attestation I have personally seen and examined this patient.: Yes I have fully participated in the care of the patient.: Yes I have reviewed all pertinent clinical information, including history, physical exam and plan: Yes Notes (Text): 03/21/18 16:04 Medical record note made by the resident after discussion with my direction and input after the patient was personally seen and examined by me. I have reviewed the chart and agree that the record accurately reflects by personal performance of the history, physical exam, data review, and medical decision-making, in the course for the patient. I have also personally directed the plan of care.
--- NOTE | 2018-03-20 21:08 | PN ---
DATE: 03/20/2018 SUBJECTIVE: The patient denies any chest pain or shortness of breath. No reported SVT. PHYSICAL EXAMINATION: VITAL SIGNS: Blood pressure 122/86, heart rate 82, temperature 97.1, respiration 20. HEENT: Normocephalic. CHEST: Clear. HEART: Sounds regular. EXTREMITIES: No edema. LABORATORY DATA: Hemoglobin, hematocrit, white count and platelet count today are within normal limit. Today's SMA-7 is within normal limits except for anion gap of 8 and creatinine of 0.7. Echocardiographic study revealed global left ventricular hypokinesis with ejection fraction estimated at 30%. ASSESSMENT: 1. Cardiomyopathy, most likely alcoholic and it also can be drug induced. 2. Phencyclidine as well as cannabinoid abuse. 3. Reentrant supraventricular tachycardia. RECOMMENDATIONS: Case was discussed with the medical team. The patient is not a suitable candidate for invasive cardiac workup. He needs to seek drug rehab first and following that, cardiac catheterization can be considered as an outpatient. In the meantime, the patient will be maintained on Cardizem, Coreg and Cozaar therapy. I did request social service consult because the patient has no way of buying his medications. In the meantime, the patient will be maintained on thiamine and was strongly advised to abstain from alcohol abuse. Gilberto De Guzman MD
[2018-03-21 06:11] VITALS: O2SAT 98
[2018-03-21 06:28] LABS: BASO # 0.03 K/mm3 (0.0-2.0); BASO % 0.4 % (0.0-3.0); EOS # 0.2 (0.0-0.7); GRAN # 4.54 (1.4-6.5); GRAN % 56.4 % (50.0-68.0); HEMOGLOBIN 15.2 g/dL (14.0-18.0); LYMPH # 2.7 (1.2-3.4); LYMPH % 33.1 % (22.0-35.0); MEAN CELL VOLUME 98.5 fl (80.0-105.0); MEAN CORPUSCULAR HGB CONC 33.6 g/dl (31.0-37.0); MEAN PLATELET VOLUME 8.7 fl (7.0-11.0); MONO # 0.6 (0.1-0.6); MONO % 7.1 % (1.0-6.0); RBC 4.6 10^6/uL (3.5-6.1); RED CELL DISTRIBUTION WIDTH 12.5 % (11.5-14.5)
[2018-03-21 06:42] LABS: ALB/GLOB RATIO 1.2 (1.1-1.8); ALBUMIN 4.1 g/dL (3.0-4.8); ALT/SGPT 35 U/L (7-56); AST/SGOT 39 U/L (17-59); BLOOD UREA NITROGEN 10 mg/dL (7-21); CALCIUM 9.4 mg/dL (8.4-10.5); GFR NON-AFRICAN AMERICAN > 60
--- NOTE | 2018-03-21 07:04 | CP.PCM.PN ---
Subjective - Date & Time of Evaluation Date of Evaluation: 03/21/18 Time of Evaluation: 07:03 - Subjective Subjective: Resident Progress Note for Hospitalist Service Objective - Vital Signs/Intake and Output Vital Signs (last 24 hours): Temp Pulse Resp BP Pulse Ox 98.0 F 69 20 111/71 98 03/21/18 06:00 03/21/18 06:00 03/21/18 06:00 03/21/18 06:00 03/21/18 06:00 Intake and Output: 03/21/18 03/21/18 06:59 18:59 Intake Total 1140 Output Total 2 Balance 1138 - Medications Medications: Current Medications Albuterol/Ipratropium (Duoneb 3 Mg/0.5 Mg (3 Ml) Ud) 3 ml IH [id number] PRN PRN Reason: Shortness of Breath Carvedilol (Coreg) 3.125 mg PO BID [facility] Last Admin: 03/20/18 18:27 Dose: 3.125 mg Dextrose (Dextrose 50% Inj) 0 ml IV STAT PRN; Protocol PRN Reason: Hypoglycemia Protocol Diltiazem HCl (Cardizem) 30 mg PO QID [facility] Last Admin: 03/20/18 21:16 Dose: 30 mg Folic Acid (Folic Acid) 1 mg PO DAILY [facility] Last Admin: 03/20/18 10:06 Dose: 1 mg Dextrose (Dextrose 5% In Water 1000 Ml) 1,000 mls @ 0 mls/hr IV .Q0M PRN; Protocol PRN Reason: Hypoglycemia Protocol Insulin Human Regular (Humulin R Low) 0 units SC ACHS [facility]; Protocol Last Admin: 03/20/18 22:36 Dose: Not Given Lorazepam (Ativan) 1 mg IVP Q4H PRN; Protocol PRN Reason: Symptoms of alcohol withdrawl Last Admin: 03/19/18 21:34 Dose: 1 mg Losartan Potassium (Cozaar) 12.5 mg PO DAILY [facility] Last Admin: 03/20/18 10:05 Dose: 12.5 mg Multivitamins/Minerals (Therapeutic-M Tab) 1 tab PO 0800 [facility] Last Admin: 03/20/18 10:05 Dose: 1 tab Nicotine (Nicoderm Cq) 1 patch TD DAILY [facility] Last Admin: 03/20/18 10:05 Dose: 1 patch Thiamine HCl (Vitamin B1 Tab) 100 mg PO DAILY [facility] Last Admin: 03/20/18 10:05 Dose: 100 mg - Labs Labs: 03/21/18 06:00 03/21/18 06:00
[2018-03-21] MEDS: Insulin Reg-LOW-Coverage SC SCH (07:30)
[2018-03-21] MEDS: Multivitamin With Minerals Tab PO SCH (10:00)
[2018-03-21 13:17] VITALS: BP 115/73; PULSE 87; RESP 19; TEMP 97.1
--- NOTE | 2018-03-21 13:23 | CP.PCM.DIS ---
Provider - Provider Date of Admission: 03/18/18 13:35 Attending physician: Justin Knapp MD Primary care physician: none Consults: 03/18/18 14:33 Physician Consult Stat Comment: Consulting Provider: Gilberto De Guzman Consulting Physician: Gilberto De Guzman Reason for Consult: SVT 03/18/18 20:54 Diabetic Education Referral Routine Comment: blood sugar 254 on admission Physician Instructions: Reason For Exam: eval Inpatient [employer] Core Measures Referral Routine Comment: svt Physician Instructions: Reason For Exam: eval Transition In Care/Readmission Reduction Routine Comment: svt Physician Instructions: Reason For Exam: eval 03/19/18 20:18 Social Work Referral Routine Comment: evaluation Physician Instructions: Reason For Exam: insurance Time Spent in preparation of Discharge (in minutes): 35 Diagnosis - Discharge Diagnosis (1) SVT (supraventricular tachycardia) Status: Resolved Hospital Course - Lab Results Lab Results: Most Recent Lab Values WBC 8.0 10^3/uL (4.5-11.0) 03/21/18 06:00 RBC 4.60 10^6/uL (3.5-6.1) 03/21/18 06:00 Hgb 15.2 g/dL (14.0-18.0) 03/21/18 06:00 Hct 45.3 % (42.0-52.0) 03/21/18 06:00 MCV 98.5 fl (80.0-105.0) 03/21/18 06:00 MCH 33.0 pg (25.0-35.0) 03/21/18 06:00 MCHC 33.6 g/dl (31.0-37.0) 03/21/18 06:00 RDW 12.5 % (11.5-14.5) 03/21/18 06:00 Plt Count 275 10^3/uL (120.0-450.0) 03/21/18 06:00 MPV 8.7 fl (7.0-11.0) 03/21/18 06:00 Gran % 56.4 % (50.0-68.0) 03/21/18 06:00 Lymph % (Auto) 33.1 % (22.0-35.0) 03/21/18 06:00 [place] % (Auto) 7.1 % (1.0-6.0) H 03/21/18 06:00 Eos % (Auto) 3.0 % (1.5-5.0) 03/21/18 06:00 Baso % (Auto) 0.4 % (0.0-3.0) 03/21/18 06:00 Gran # 4.54 (1.4-6.5) 03/21/18 06:00 Lymph # (Auto) 2.7 (1.2-3.4) 03/21/18 06:00 [place] # (Auto) 0.6 (0.1-0.6) 03/21/18 06:00 Eos # (Auto) 0.2 (0.0-0.7) 03/21/18 06:00 Baso # (Auto) 0.03 K/mm3 (0.0-2.0) 03/21/18 06:00 D-Dimer, Quantitative < 200 ng/mlDDU (0-243) 03/18/18 14:46 Sodium 137 mmol/L (132-148) 03/21/18 06:00 Potassium 4.0 mmol/L (3.6-5.0) 03/21/18 06:00 Chloride 103 mmol/L (98-107) 03/21/18 06:00 Carbon Dioxide 28 mmol/L (21-33) 03/21/18 06:00 Anion Gap 10 (10-20) 03/21/18 06:00 BUN 10 mg/dL (7-21) 03/21/18 06:00 Creatinine 0.7 mg/dl (0.8-1.5) L 03/21/18 06:00 Est GFR ( Amer) > 60 03/21/18 06:00 Est GFR (Non-Af Amer) > 60 03/21/18 06:00 POC Glucose (mg/dL) 119 mg/dL (65-110) H 03/21/18 11:10 Random Glucose 95 mg/dL (70-110) 03/21/18 06:00 Hemoglobin A1c 5.8 % (4.2-6.5) 03/18/18 15:10 Calcium 9.4 mg/dL (8.4-10.5) 03/21/18 06:00 Phosphorus 3.4 mg/dL (2.5-4.5) 03/21/18 06:00 Magnesium 1.9 mg/dL (1.7-2.2) 03/21/18 06:00 Total Bilirubin 1.2 mg/dL (0.2-1.3) 03/21/18 06:00 AST 39 U/L (17-59) 03/21/18 06:00 ALT 35 U/L (7-56) 03/21/18 06:00 Alkaline Phosphatase 58 U/L (38-126) 03/21/18 06:00 Troponin I < 0.01 ng/mL D 03/18/18 11:35 Total Protein 7.4 g/dL (5.8-8.3) 03/21/18 06:00 Albumin 4.1 g/dL (3.0-4.8) 03/21/18 06:00 Globulin 3.4 gm/dL 03/21/18 06:00 Albumin/Globulin Ratio 1.2 (1.1-1.8) 03/21/18 06:00 Triglycerides 53 mg/dL (35-160) 03/18/18 11:35 Cholesterol 167 mg/dL (130-200) 03/18/18 11:35 LDL Cholesterol Direct 61 mg/dL (0-129) 03/18/18 11:35 HDL Cholesterol 99 mg/dL (29-60) H 03/18/18 11:35 Free T4 0.93 ng/dL (0.78-2.19) 03/18/18 15:05 Thyroxine (T4) 5.5 ug/dL (5.5-11.0) 03/18/18 15:05 Free T3 pg/mL 4.16 pg/mL (2.77-5.27) 03/18/18 11:35 Total T3 1.23 ng/mL (0.97-1.69) 03/18/18 15:05 TSH 3rd Generation 0.56 mIU/mL (0.46-4.68) 03/18/18 11:35 Urine Opiates Screen Negative (NEGATIVE) 03/19/18 05:30 Urine Methadone Screen Negative (NEGATIVE) 03/19/18 05:30 Ur Barbiturates Screen Negative (NEGATIVE) 03/19/18 05:30 Ur Phencyclidine Scrn Positive (NEGATIVE) H 03/19/18 05:30 Ur Amphetamines Screen Negative (NEGATIVE) 03/19/18 05:30 U Benzodiazepines Scrn Negative (NEGATIVE) 03/19/18 05:30 U Oth Cocaine Metabols Negative (NEGATIVE) 03/19/18 05:30 U Cannabinoids Screen Positive (NEGATIVE) H 03/19/18 05:30 Alcohol, Quantitative < 10 mg/dL (0-10) 03/18/18 15:05 - Hospital Course Hospital Course: On admission: Patient is a 43 year old male with past medical history SVT and polysubstance abuse presenting with chief complaint of palpitations that began this morning. He stated that his symptoms began while he was at rest. He also had associated chest pain localized to his right anterior chest, shortness of breath and dizziness. Patient states he had two 24 oz beers yesterday and that his last alcoholic intake was yesterday late afternoon. He admits to daily marijuana use but denies any other illicit drug use including heroine and cocaine. Of note, patient has been previously admitted for SVT however he signed out AMA at that time. Denies fevers, chills, nausea, vomiting, abdominal pain, constipation, diarrhea, dysuria. During hospital course: Patient was given adenosine x2 which resolved the SVT. Patient had chest xray done which was unremarkable. EKG showed SVT. Thyroid function tests, lipid panel were within normal limits. UDS was positive for phencyclidines, cannabinoids. Patient was placed on CIWA protocol and counseled on cessation. Cardiology was consulted. ECHO was done which showed EF of 30.5%, global hypokinesis of left ventricle, severely impaired systolic function. . Patient is not suitable for invasive cardiac workup as per cardiology. Patient was advised to seek drug rehab first, then cardiac cath could be considered ou tpatient. Patient was discharged with shayy marcus cozaar. Please refer to EMR for full details. - Date & Time of H&P Date of H&P: 03/18/18 Time of H&P: 13:40 Discharge Exam - Additional Findings Additional findings: - Constitutional Appears: Well, Non-toxic, No Acute Distress - Eye Exam Eye Exam: EOMI, Normal appearance - ENT Exam ENT Exam: Mucous Membranes Moist - Respiratory Exam Respiratory Exam: Clear to Ausculation Bilateral, NORMAL BREATHING PATTERN - Cardiovascular Exam Cardiovascular Exam: REGULAR RHYTHM, +S1, +S2 - GI/Abdominal Exam GI & Abdominal Exam: Soft. absent: Tenderness - Extremities Exam Extremities Exam: absent: Pedal Edema - Neurological Exam Neurological Exam: Alert, Awake, Oriented x3 Discharge Plan - Discharge Medications Prescriptions: Carvedilol [Coreg] 3.125 mg PO BID 14 Days tab diltiaZEM [Cardizem] 30 mg PO QID #14 tab Losartan [Cozaar] 25 mg PO DAILY #14 tab - Follow Up Plan Condition: GOOD Disposition: HOME/ ROUTINE Patient education suggested?: Yes Instructions: Supraventricular Tachycardia (SVT) Additional Instructions: Please follow up with your primary medical doctor within one week. An appointment has been made for you in the [facility] for April 01 at 2PM. Please complete your [facility] application process before your appointment. Please bring a photo ID and arrive 15 minutes before your appointment. You have been prescribed Coreg, Cardizem, Cozaar. Please refrain from using any drugs that are not prescribed by a physician. Please take these as prescribed. Return to ED if symptoms return or worsen. Referrals: [facility] at [facility] [Outside]
--- NOTE | 2018-03-21 13:44 | CP.PCM.DIS ---
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 Routine Comment: svt Physician Instructions: Reason For Exam: eval Transition In Care/Readmission Reduction Routine Comment: svt Physician Instructions: Reason For Exam: eval 03/19/18 20:18 Social Work Referral Routine Comment: evaluation Physician Instructions: Reason For Exam: insurance Time Spent in preparation of Discharge (in minutes): 45 Diagnosis - Discharge Diagnosis (1) SVT (supraventricular tachycardia) Status: Resolved Hospital Course - Lab Results Lab Results: Most Recent Lab Values WBC 8.0 10^3/uL (4.5-11.0) 03/21/18 06:00 RBC 4.60 10^6/uL (3.5-6.1) 03/21/18 06:00 Hgb 15.2 g/dL (14.0-18.0) 03/21/18 06:00 Hct 45.3 % (42.0-52.0) 03/21/18 06:00 MCV 98.5 fl (80.0-105.0) 03/21/18 06:00 MCH 33.0 pg (25.0-35.0) 03/21/18 06:00 MCHC 33.6 g/dl (31.0-37.0) 03/21/18 06:00 RDW 12.5 % (11.5-14.5) 03/21/18 06:00 Plt Count 275 10^3/uL (120.0-450.0) 03/21/18 06:00 MPV 8.7 fl (7.0-11.0) 03/21/18 06:00 Gran % 56.4 % (50.0-68.0) 03/21/18 06:00 Lymph % (Auto) 33.1 % (22.0-35.0) 03/21/18 06:00 [place] % (Auto) 7.1 % (1.0-6.0) H 03/21/18 06:00 Eos % (Auto) 3.0 % (1.5-5.0) 03/21/18 06:00 Baso % (Auto) 0.4 % (0.0-3.0) 03/21/18 06:00 Gran # 4.54 (1.4-6.5) 03/21/18 06:00 Lymph # (Auto) 2.7 (1.2-3.4) 03/21/18 06:00 [place] # (Auto) 0.6 (0.1-0.6) 03/21/18 06:00 Eos # (Auto) 0.2 (0.0-0.7) 03/21/18 06:00 Baso # (Auto) 0.03 K/mm3 (0.0-2.0) 03/21/18 06:00 D-Dimer, Quantitative < 200 ng/mlDDU (0-243) 03/18/18 14:46 Sodium 137 mmol/L (132-148) 03/21/18 06:00 Potassium 4.0 mmol/L (3.6-5.0) 03/21/18 06:00 Chloride 103 mmol/L (98-107) 03/21/18 06:00 Carbon Dioxide 28 mmol/L (21-33) 03/21/18 06:00 Anion Gap 10 (10-20) 03/21/18 06:00 BUN 10 mg/dL (7-21) 03/21/18 06:00 Creatinine 0.7 mg/dl (0.8-1.5) L 03/21/18 06:00 Est GFR ( Amer) > 60 03/21/18 06:00 Est GFR (Non-Af Amer) > 60 03/21/18 06:00 POC Glucose (mg/dL) 119 mg/dL (65-110) H 03/21/18 11:10 Random Glucose 95 mg/dL (70-110) 03/21/18 06:00 Hemoglobin A1c 5.8 % (4.2-6.5) 03/18/18 15:10 Calcium 9.4 mg/dL (8.4-10.5) 03/21/18 06:00 Phosphorus 3.4 mg/dL (2.5-4.5) 03/21/18 06:00 Magnesium 1.9 mg/dL (1.7-2.2) 03/21/18 06:00 Total Bilirubin 1.2 mg/dL (0.2-1.3) 03/21/18 06:00 AST 39 U/L (17-59) 03/21/18 06:00 ALT 35 U/L (7-56) 03/21/18 06:00 Alkaline Phosphatase 58 U/L (38-126) 03/21/18 06:00 Troponin I < 0.01 ng/mL D 03/18/18 11:35 Total Protein 7.4 g/dL (5.8-8.3) 03/21/18 06:00 Albumin 4.1 g/dL (3.0-4.8) 03/21/18 06:00 Globulin 3.4 gm/dL 03/21/18 06:00 Albumin/Globulin Ratio 1.2 (1.1-1.8) 03/21/18 06:00 Triglycerides 53 mg/dL (35-160) 03/18/18 11:35 Cholesterol 167 mg/dL (130-200) 03/18/18 11:35 LDL Cholesterol Direct 61 mg/dL (0-129) 03/18/18 11:35 HDL Cholesterol 99 mg/dL (29-60) H 03/18/18 11:35 Free T4 0.93 ng/dL (0.78-2.19) 03/18/18 15:05 Thyroxine (T4) 5.5 ug/dL (5.5-11.0) 03/18/18 15:05 Free T3 pg/mL 4.16 pg/mL (2.77-5.27) 03/18/18 11:35 Total T3 1.23 ng/mL (0.97-1.69) 03/18/18 15:05 TSH 3rd Generation 0.56 mIU/mL (0.46-4.68) 03/18/18 11:35 Urine Opiates Screen Negative (NEGATIVE) 03/19/18 05:30 Urine Methadone Screen Negative (NEGATIVE) 03/19/18 05:30 Ur Barbiturates Screen Negative (NEGATIVE) 03/19/18 05:30 Ur Phencyclidine Scrn Positive (NEGATIVE) H 03/19/18 05:30 Ur Amphetamines Screen Negative (NEGATIVE) 03/19/18 05:30 U Benzodiazepines Scrn Negative (NEGATIVE) 03/19/18 05:30 U Oth Cocaine Metabols Negative (NEGATIVE) 03/19/18 05:30 U Cannabinoids Screen Positive (NEGATIVE) H 03/19/18 05:30 Alcohol, Quantitative < 10 mg/dL (0-10) 03/18/18 15:05 - Hospital Course Hospital Course: On admission: Patient is a 43 year old male with past medical history SVT and polysubstance abuse presenting with chief complaint of palpitations that began this morning. He stated that his symptoms began while he was at rest. He also had associated chest pain localized to his right anterior chest, shortness of breath and dizziness. Patient states he had two 24 oz beers yesterday and that his last alcoholic intake was yesterday late afternoon. He admits to daily marijuana use but denies any other illicit drug use including heroine and cocaine. Of note, patient has been previously admitted for SVT however he signed out AMA at that time. Denies fevers, chills, nausea, vomiting, abdominal pain, constipation, diarrhea, dysuria. During hospital course: Patient was given adenosine x2 which resolved the SVT. Patient had chest xray done which was unremarkable. EKG showed SVT. Thyroid function tests, lipid panel were within normal limits. UDS was positive for phencyclidines, cannabinoids. Patient was placed on CIWA protocol and counseled on cessation. Cardiology was consulted. ECHO was done which showed EF of 30.5%, global hypokinesis of left ventricle, severely impaired systolic function. . Patient is not suitable for invasive cardiac workup as per cardiology. Patient was advised to seek drug rehab first, then cardiac cath could be considered outpatient. Patient was discharged with shayy marcus cozaar. Please refer to EMR for full details. - Date & Time of H&P Date of H&P: 03/18/18 Time of H&P: 13:40 Discharge Exam - Additional Findings Additional findings: - Constitutional Appears: Well, Non-toxic, No Acute Distress - Eye Exam Eye Exam: EOMI, Normal appearance - ENT Exam ENT Exam: Mucous Membranes Moist - Respiratory Exam Respiratory Exam: Clear to Ausculation Bilateral, NORMAL BREATHING PATTERN - Cardiovascular Exam Cardiovascular Exam: REGULAR RHYTHM, +S1, +S2 - GI/Abdominal Exam GI & Abdominal Exam: Soft. absent: Tenderness - Extremities Exam Extremities Exam: absent: Pedal Edema - Neurological Exam Neurological Exam: Alert, Awake, Oriented x3 Discharge Plan - Discharge Medications Prescriptions: RX: Carvedilol [Coreg] 3.125 mg PO BID 14 Days tab Diltiazem HCl [Cardizem Cd] 120 mg PO DAILY #30 RX: Losartan [Cozaar] 25 mg PO DAILY #14 tab - Follow Up Plan Condition: GOOD Disposition: HOME/ ROUTINE Patient education suggested?: Yes Instructions: Supraventricular Tachycardia (SVT) Additional Instructions: Please follow up with your primary medical doctor within one week. An appointment has been made for you in the [facility] for April 01 at 2PM. Please complete your [facility] application process before your appointment. Please bring a photo ID and arrive 15 minutes before your appointment. You have been prescribed Coreg, Cardizem, Cozaar. Please refrain from using any drugs that are not prescribed by a physician. Please take these as prescribed. Return to ED if symptoms return or worsen. 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: svt Physician Instructions: Reason For Exam: eval Transition In Care/Readmission Reduction Routine Comment: svt Physician Instructions: Reason For Exam: eval 03/19/18 20:18 Social Work Referral Routine Comment: evaluation Physician Instructions: Reason For Exam: insurance Hospital Course - Lab Results Lab Results: Most Recent Lab Values WBC 8.0 10^3/uL (4.5-11.0) 03/21/18 06:00 RBC 4.60 10^6/uL (3.5-6.1) 03/21/18 06:00 Hgb 15.2 g/dL (14.0-18.0) 03/21/18 06:00 Hct 45.3 % (42.0-52.0) 03/21/18 06:00 MCV 98.5 fl (80.0-105.0) 03/21/18 06:00 MCH 33.0 pg (25.0-35.0) 03/21/18 06:00 MCHC 33.6 g/dl (31.0-37.0) 03/21/18 06:00 RDW 12.5 % (11.5-14.5) 03/21/18 06:00 Plt Count 275 10^3/uL (120.0-450.0) 03/21/18 06:00 MPV 8.7 fl (7.0-11.0) 03/21/18 06:00 Gran % 56.4 % (50.0-68.0) 03/21/18 06:00 Lymph % (Auto) 33.1 % (22.0-35.0) 03/21/18 06:00 [place] % (Auto) 7.1 % (1.0-6.0) H 03/21/18 06:00 Eos % (Auto) 3.0 % (1.5-5.0) 03/21/18 06:00 Baso % (Auto) 0.4 % (0.0-3.0) 03/21/18 06:00 Gran # 4.54 (1.4-6.5) 03/21/18 06:00 Lymph # (Auto) 2.7 (1.2-3.4) 03/21/18 06:00 [place] # (Auto) 0.6 (0.1-0.6) 03/21/18 06:00 Eos # (Auto) 0.2 (0.0-0.7) 03/21/18 06:00 Baso # (Auto) 0.03 K/mm3 (0.0-2.0) 03/21/18 06:00 D-Dimer, Quantitative < 200 ng/mlDDU (0-243) 03/18/18 14:46 Sodium 137 mmol/L (132-148) 03/21/18 06:00 Potassium 4.0 mmol/L (3.6-5.0) 03/21/18 06:00 Chloride 103 mmol/L (98-107) 03/21/18 06:00 Carbon Dioxide 28 mmol/L (21-33) 03/21/18 06:00 Anion Gap 10 (10-20) 03/21/18 06:00 BUN 10 mg/dL (7-21) 03/21/18 06:00 Creatinine 0.7 mg/dl (0.8-1.5) L 03/21/18 06:00 Est GFR ( Amer) > 60 03/21/18 06:00 Est GFR (Non-Af Amer) > 60 03/21/18 06:00 POC Glucose (mg/dL) 119 mg/dL (65-110) H 03/21/18 11:10 Random Glucose 95 mg/dL (70-110) 03/21/18 06:00 Hemoglobin A1c 5.8 % (4.2-6.5) 03/18/18 15:10 Calcium 9.4 mg/dL (8.4-10.5) 03/21/18 06:00 Phosphorus 3.4 mg/dL (2.5-4.5) 03/21/18 06:00 Magnesium 1.9 mg/dL (1.7-2.2) 03/21/18 06:00 Total Bilirubin 1.2 mg/dL (0.2-1.3) 03/21/18 06:00 AST 39 U/L (17-59) 03/21/18 06:00 ALT 35 U/L (7-56) 03/21/18 06:00 Alkaline Phosphatase 58 U/L (38-126) 03/21/18 06:00 Troponin I < 0.01 ng/mL D 03/18/18 11:35 Total Protein 7.4 g/dL (5.8-8.3) 03/21/18 06:00 Albumin 4.1 g/dL (3.0-4.8) 03/21/18 06:00 Globulin 3.4 gm/dL 03/21/18 06:00 Albumin/Globulin Ratio 1.2 (1.1-1.8) 03/21/18 06:00 Triglycerides 53 mg/dL (35-160) 03/18/18 11:35 Cholesterol 167 mg/dL (130-200) 03/18/18 11:35 LDL Cholesterol Direct 61 mg/dL (0-129) 03/18/18 11:35 HDL Cholesterol 99 mg/dL (29-60) H 03/18/18 11:35 Free T4 0.93 ng/dL (0.78-2.19) 03/18/18 15:05 Thyroxine (T4) 5.5 ug/dL (5.5-11.0) 03/18/18 15:05 Free T3 pg/mL 4.16 pg/mL (2.77-5.27) 03/18/18 11:35 Total T3 1.23 ng/mL (0.97-1.69) 03/18/18 15:05 TSH 3rd Generation 0.56 mIU/mL (0.46-4.68) 03/18/18 11:35 Urine Opiates Screen Negative (NEGATIVE) 03/19/18 05:30 Urine Methadone Screen Negative (NEGATIVE) 03/19/18 05:30 Ur Barbiturates Screen Negative (NEGATIVE) 03/19/18 05:30 Ur Phencyclidine Scrn Positive (NEGATIVE) H 03/19/18 05:30 Ur Amphetamines Screen Negative (NEGATIVE) 03/19/18 05:30 U Benzodiazepines Scrn Negative (NEGATIVE) 03/19/18 05:30 U Oth Cocaine Metabols Negative (NEGATIVE) 03/19/18 05:30 U Cannabinoids Screen Positive (NEGATIVE) H 03/19/18 05:30 Alcohol, Quantitative < 10 mg/dL (0-10) 03/18/18 15:05 Attending/Attestation - Attestation I have personally seen and examined this patient.: Yes I have fully participated in the care of the patient.: Yes I have reviewed all pertinent clinical information, including history, physical exam and plan: Yes Notes (Text): 03/21/18 16:00 Medical record note made by the resident after discussion with my direction and input after the patient was personally seen and examined by me. I have reviewed the chart and agree that the record accurately reflects by personal performance of the history, physical exam, data review, and medical decision-making, in the course for the patient. I have also personally directed the plan of care. 43 year old male with past medical history SVT, alcohol ,polysubstance abuse and non compliance was admitted with episode of SVT, converted to NSR after IV Adenosine . Echo showed severe systolic dysfunction EF 30%.Patient is euvolemic. Cardiology follow up is appreciated.Patient has been started on Coreg/Losartan and ARB. He has been advised to stop using drug and alcohol. Patient will need to follow up with [facility] clinic.He will need repeat BMP in one week. He will need repeat Echo in 3 month. There is no sign of alcohol withdrawal at this time. Issue of compliance with medication , alcohol and drug abuse was discussed in detail with him Management plan was discussed in detail with patient. Education was provided.
--- NOTE | 2018-03-21 15:30 | PN ---
DATE: 03/21/2018 SUBJECTIVE: The patient denies any chest pain or shortness of breath. He is ambulatory. PHYSICAL EXAMINATION: VITAL SIGNS: Blood pressure 136/91, heart rate 85, temperature 98, and respiration 20. HEENT: Normocephalic. CHEST: Clear. HEART: S1 and S2, regular. EXTREMITIES: No edema. LABORATORY DATA: Today's hemoglobin, hematocrit, white count and platelet count are within normal limit. Today's SMA-7 is within normal limits except for creatinine of 0.7. ASSESSMENT: 1. Cardiomyopathy. 2. Alcohol and phencyclidine abuse. 3. Hypertension. 4. Paroxysmal reentrant supraventricular tachycardia. RECOMMENDATIONS: Continue Cardizem at 30 mg four times a day, Coreg 3.125 mg twice a day, increase Cozaar to 25 mg once a day. Continue thiamine 100 mg once a day. Social service was consulted twice as the patient outpatient medication supply. The patient also stated that he will apply for Medicaid and SSI as he sees himself qualified for both of them. Gilberto De Guzman MD
== END 2018-03-21 19:10 | disposition home or self-care (01) | DRG 201 ==
LOC: ED 11:19 → ERH 13:35 → 2RNO 16:29
PROVIDERS: ADMIT Hospitalist; ATTEND Internal Medicine
DX: I47.1 Supraventricular tachycardia (principal); I42.6 Alcoholic cardiomyopathy; I10 Essential (primary) hypertension; F12.10 Cannabis abuse, uncomplicated; F16.10 Hallucinogen abuse, uncomplicated; F11.10 Opioid abuse, uncomplicated; F10.10 Alcohol abuse, uncomplicated; F17.210 Nicotine dependence, cigarettes, uncomplicated; Z91.19 Patient's noncompliance with other medical treatment and regimen

== ENCOUNTER 2018-04-04 03:46 | Emergency (ER) | payer MEDICAID, OTHER ==
[2018-04-04 03:46] VITALS: BMI 20.2
[2018-04-04 04:10] VITALS: RESP 18; TEMP 98.6; O2SAT 100
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
[2018-04-04 05:20] VITALS: BP 124/78; PULSE 84
--- NOTE | 2018-04-04 09:15 | CARD ---
APPROVED REPORT Date of service: 04/04/2018 EKG Measurement Heart [id number] <Conclusion> Normal sinus rhythm Normal ECG
== END 2018-04-04 04:57 | disposition home or self-care (01) ==
LOC: ED 03:46
DX: F41.9 Anxiety disorder, unspecified (principal)

== ENCOUNTER 2018-06-24 13:56 | Emergency (ER) | payer MEDICAID ==
[2018-06-24 14:04] VITALS: BMI 21.4
[2018-06-24 14:10] VITALS: TEMP 98.3
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
[2018-06-24 16:43] LABS: BASO # 0.05 K/mm3 (0.0-2.0); EOS # 0.2 (0.0-0.7); EOS % 3.8 % (1.5-5.0); LYMPH # 2.1 (1.2-3.4); LYMPH % 41.9 % (22.0-35.0); MEAN CELL VOLUME 99.2 fl (80.0-105.0); MEAN CORPUSCULAR HEMOGLOBIN 33.9 pg (25.0-35.0); MEAN CORPUSCULAR HGB CONC 34.2 g/dl (31.0-37.0); MEAN PLATELET VOLUME 8.8 fl (7.0-11.0); MONO # 0.4 (0.1-0.6); MONO % 8.3 % (1.0-6.0); RBC 3.83 10^6/uL (3.5-6.1); RED CELL DISTRIBUTION WIDTH 12.1 % (11.5-14.5); WHITE BLOOD COUNT 5.1 10^3/uL (4.5-11.0)
[2018-06-24 16:55] LABS: ALB/GLOB RATIO 1.2 (1.1-1.8); ALBUMIN 3.7 g/dL (3.0-4.8); ALT/SGPT 39 U/L (7-56); AST/SGOT 48 U/L (17-59); BLOOD UREA NITROGEN 13 mg/dL (7-21); CALCIUM 8.7 mg/dL (8.4-10.5); GFR NON-AFRICAN AMERICAN > 60
[2018-06-24] MEDS ORDERED: Iohexol 350 MG/100 ML VIAL ONE (17:17)
--- NOTE | 2018-06-24 17:58 | CT ---
Date of service: 06/24/2018 PROCEDURE: CT Abdomen and Pelvis with contrast HISTORY: evaluate for ventral hernia COMPARISON: None. TECHNIQUE: Contrast dose: 96 mL of Omnipaque 350 intravenously. Axial and reformatted coronal and sagittal CT images of the abdomen and pelvis were obtained after IV contrast administration. Radiation dose: Total exam DLP = 204.64 mGy-cm. This CT exam was performed using one or more of the following dose reduction techniques: Automated exposure control, adjustment of the mA and/or kV according to patient size, and/or use of iterative reconstruction technique. FINDINGS: LOWER THORAX: Unremarkable. LIVER: Unremarkable. No gross lesion or ductal dilatation. GALLBLADDER AND BILE DUCTS: Unremarkable. PANCREAS: Unremarkable. No gross lesion or ductal dilatation. SPLEEN: Unremarkable. ADRENALS: Unremarkable. No mass. KIDNEYS AND URETERS: Unremarkable. No hydronephrosis. No solid mass. VASCULATURE: Unremarkable. No aortic aneurysm. No aortic atherosclerotic calcification or mural plaque present. BOWEL: Unremarkable. No obstruction. No gross mural thickening. APPENDIX: Normal appendix. PERITONEUM: Unremarkable. No free fluid. No free air. LYMPH NODES: Unremarkable. No enlarged lymph nodes. BLADDER: Unremarkable. REPRODUCTIVE: Unremarkable. BONES: No acute fracture. OTHER FINDINGS: None. IMPRESSION: No evidence of ventral hernia or acute pathology in the abdomen and pelvis.
[2018-06-24 19:33] VITALS: BP 139/90; PULSE 72; RESP 17; O2SAT 100
--- NOTE | 2018-06-25 08:09 | RAD ---
Date of service: 06/24/2018 PROCEDURE: Radiographs of the Right Shoulder HISTORY: anterior pain COMPARISON: No prior. FINDINGS: BONES: Normal. No fracture. JOINTS: Normal. Glenohumeral and acromioclavicular joints preserved. No osteoarthritis. SOFT TISSUES: Normal. OTHER FINDINGS: None. IMPRESSION: Normal radiographs of the right shoulder.
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
== END 2018-06-24 19:39 | disposition home or self-care (01) ==
LOC: ED 13:56
DX: S43.401A Unspecified sprain of right shoulder joint, initial encounter (principal); S63.91XA Sprain of unspecified part of right wrist and hand, initial encounter; X58.XXXA Exposure to other specified factors, initial encounter; Z87.891 Personal history of nicotine dependence
CPT/HCPCS: 73030; 73110; 73130; 74177; 80053; 85025; 99284; Q9967

== ENCOUNTER 2018-07-12 02:43 | Emergency (ER) | payer MEDICAID ==
[2018-07-12 02:44] VITALS: BMI 21.4
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
--- NOTE | 2018-07-12 07:36 | ED PDOC ---
Physical Exam Vital Signs Reviewed: Yes Vital Signs Temp Pulse Resp BP Pulse Ox 07/12/18 06:00 89 18 112/79 96 07/12/18 04:25 92 H 16 128/80 96 07/12/18 02:51 97.7 F 108 H 20 106/77 95 Temperature: Afebrile Blood Pressure: Normal Pulse: Tachycardic Respiratory Rate: Normal Finger Stick Blood Glucose: 98 - Systems Exam Head: Present: Atraumatic, Normocephalic, Abrasion (multiple abrasions including the right cheek, left sikh, left nose) Pupils: Present: PERRL Extroacular Muscles: Present: EOMI Conjunctiva: Present: Normal Mouth: Present: Moist Mucous Membranes. No: Other (no malocclusion) Nose (External): Present: Abrasion (and bruising to left nose). No: Other (no septal hematoma) Neck: Present: Normal Range of Motion. No: Other (no step off) Respiratory/Chest: Present: Clear to Auscultation, Good Air Exchange. No: Respiratory Distress, Accessory Muscle Use Cardiovascular: Present: Regular Rate and Rhythm, Normal S1, S2. No: Murmurs Abdomen: No: Tenderness, Distention, Peritoneal Signs Back: Present: Normal Inspection Upper Extremity: Present: Normal ROM (to right forearm), Tenderness (to right forearm), Other (contusion to right proximal forearm). No: Cyanosis, Edema Lower Extremity: Present: Normal Inspection. No: Edema Neurological: Present: GCS=15, Speech Normal Skin: Present: Warm, Dry, Normal Color. No: Rashes Psychiatric: Present: Alert, Oriented x 3, Intoxicated Medical Decision Making ED Course and Treatment: 07/12/18 07:39 Case signed out to me by Dr. Carver. Shows negative CT and X-Ray, pending clinical sobriety. 07/12/18 07:56 pt AOx3, stable gait, good finger to nose, walks in straight line w/ strong steady gait and without signs of withdrawal. Pain improved, neuro exam unremarkable, clear for d/c home with return indications and f/u. I endorsed the need to decrease Etoh use. Pt is agreeable. - RAD Interpretation Radiology Orders: 07/12/18 03:11 CERVICAL SPINE W/O CONTRAST [CT] Stat HEAD W/O CONTRAST [CT] Stat 07/12/18 03:12 MAXILLOFACIAL W/O CONTRAST [CT] Stat FOREARM RIGHT [RAD] Stat - Medication Orders Current Medication Orders: Discontinued Medications Acetaminophen (Tylenol 325mg Tab) 975 mg PO STAT STA Stop: 07/12/18 05:03 Last Admin: 07/12/18 05:16 Dose: 975 mg MAR Pain/Vitals Document 07/12/18 05:16 KV (Rec: 07/12/18 05:16 KV [id number]) Pain Reassessment Is This A Pain ReAssessment? No Sleep Is patient sleeping during reassessment? No Presence of Pain Presence of Pain Yes Pain Scale Used Protocol: PSCALES Pain Scale Used Numeric Location Pain Location Body Site Face Description Constant Intensity 10 Scale Used Numeric - Scribe Statement The provider has reviewed the documentation as recorded by the Rafaelibanjel Le Provider Scribe Attestation: All medical record entries made by the Scribe were at my direction and personally dictated by me. I have reviewed the chart and agree that the record accurately reflects my personal performance of the history, physical exam, medical decision making, and the department course for this patient. I have also personally directed, reviewed, and agree with the discharge instructions and disposition. Disposition/Present on Arrival - Present on Arrival Any Indicators Present on Arrival: Yes History of DVT/PE: No History of Uncontrolled Diabetes: Yes Urinary Catheter: No History of Decub. Ulcer: No History Surgical Site Infection Following: None - Disposition Have Diagnosis and Disposition been Completed?: Yes Diagnosis: Alcohol intoxication, Abrasion of face, Contusion, multiple sites, Head injury Disposition: HOME/ ROUTINE Disposition Time: 07:54 Patient Problems: Current Active Problems Problem Status Onset Alcohol intoxication Acute Abrasion of face Acute Contusion, multiple sites Acute Head injury Acute Condition: STABLE Discharge Instructions (ExitCare): Skin Abrasions (DC), Alcohol Use - When Is Drinking a Problem?, Effects of Alcohol on Your Health Additional Instructions: TRY TO DECREASE THE AMOUNT THAT YOUR ARE DRINKING, IT CAN BE DEADLY. JACKIE RODRIGUEZ, thank you for letting us take care of you today. Your provider was Paul Allen and you were treated for INJURY TO THE FACE. The emergency medical care you received today was directed at your acute symptoms. If you were prescribed any medication, please fill it and take as directed. It may take several days for your symptoms to resolve. Return to the Emergency Department if your symptoms worsen, do not improve, or if you have any other problems. Please contact your doctor or call one of the physicians/clinics you have been referred to that are listed on the Patient Visit Information form that is i ncluded in your discharge packet. Bring any paperwork you were given at discharge with you along with any medications you are taking to your follow up visit. Our treatment cannot replace ongoing medical care by a primary care provider outside of the emergency department. Thank you for allowing the [facility] team to be part of your care today. If you had an X-Ray or CT scan: A Radiologist will review the ED reading if any change in treatment is needed we will contact you. If you had a blood, urine, or wound culture: It will take several days for the results, if any change in treatment is needed we will contact you. If you had an STI test: It will take 48 hours for the results. Please call after 1 week if you have not heard back. Referrals: Marylou Allen MD [Primary Care Provider] - Follow up with primary [facility] [Outside] - Follow up with primary [facility] [Outside] - Follow up with primary [facility] [Outside] - Follow up with primary [facility] [Outside] - Follow up with primary Forms: [employer] (South Sudanese)
[2018-07-12 07:43] VITALS: BP 124/74; PULSE 79; RESP 16; TEMP 97.9; O2SAT 97
--- NOTE | 2018-07-12 09:02 | CT ---
Date of service: 07/12/2018 PROCEDURE: CT HEAD WITHOUT CONTRAST. HISTORY: head trauma COMPARISON: None available. TECHNIQUE: Axial computed tomography images were obtained through the head/brain without intravenous contrast. Radiation dose: Total exam DLP = 746.28 mGy-cm. This CT exam was performed using one or more of the following dose reduction techniques: Automated exposure control, adjustment of the mA and/or kV according to patient size, and/or use of iterative reconstruction technique. FINDINGS: HEMORRHAGE: No intracranial hemorrhage. BRAIN: No mass effect or edema. No atrophy or chronic microvascular ischemic changes. VENTRICLES: Unremarkable. No hydrocephalus. CALVARIUM: Unremarkable. PARANASAL SINUSES: Minimal inflammatory changes in the left maxillary sinus MASTOID AIR CELLS: Unremarkable as visualized. No inflammatory changes. OTHER FINDINGS: The report concurs with the preliminary [facility] report IMPRESSION: Normal CT of the Head.
--- NOTE | 2018-07-12 09:06 | CT ---
Date of service: 07/12/2018 PROCEDURE: CT MAXILLOFACIAL BONES WITHOUT CONTRAST HISTORY: facial trauma COMPARISON: None available. TECHNIQUE: Contiguous axial CT images of the maxillofacial bones were obtained. Coronal and sagittal reformats were generated. Radiation dose: Total exam DLP = 821.77 mGy-cm. This CT exam was performed using one or more of the following dose reduction techniques: Automated exposure control, adjustment of the mA and/or kV according to patient size, and/or use of iterative reconstruction technique. FINDINGS: NASAL BONES: Chronic appearing nasal bone fractures. No soft tissue swelling ORBITS: Unremarkable. PARANASAL SINUSES/ MASTOIDS: Mucosal thickening in the left maxillary sinus. Nasal septal deviation to the right MAXILLA: Unremarkable. MANDIBLE/ TEMPOROMANDIBULAR JOINTS: Unremarkable. SKULL BASE: Unremarkable. TEMPORAL BONES: Middle ears and mastoid grossly unremarkable. OTHER FINDINGS: The report concurs with the preliminary [facility] report IMPRESSION: No acute facial fractures
--- NOTE | 2018-07-12 09:09 | CT ---
Date of service: 07/12/2018 PROCEDURE: CT Cervical Spine without contrast HISTORY: head injury COMPARISON: None available. TECHNIQUE: Axial computed tomography images were obtained of the cervical spine without the use of intravenous contrast. Coronal and sagittal reformatted images were created and reviewed. Radiation dose: Total exam DLP = 387.21 mGy-cm. This CT exam was performed using one or more of the following dose reduction techniques: Automated exposure control, adjustment of the mA and/or kV according to patient size, and/or use of iterative reconstruction technique. FINDINGS: VERTEBRAE: No fracture. Normal alignment. No destructive bony lesion. DISCS/SPINAL CANAL/NEURAL FORAMINA: No significant central canal or neural foraminal stenosis. There is disc degeneration at C5-6 PARASPINAL SOFT TISSUES: Unremarkable. OTHER FINDINGS: The report concurs with the preliminary [facility] report IMPRESSION: No acute findings
--- NOTE | 2018-07-12 10:47 | RAD ---
PROCEDURE: Radiographs of the Right Forearm HISTORY: injury COMPARISON: None available. TECHNIQUE: Frontal and lateral views obtained. 2 views obtained. FINDINGS: BONES: No fracture or destructive lesion. JOINT SPACES: Unremarkable. OTHER FINDINGS: None. IMPRESSION: Unremarkable radiographs of the right forearm.
== END 2018-07-12 08:19 | disposition home or self-care (01) ==
LOC: ED 02:43
DX: S00.81XA Abrasion of other part of head, initial encounter (principal); S50.11XA Contusion of right forearm, initial encounter; W10.9XXA Fall (on) (from) unspecified stairs and steps, initial encounter; Y92.009 Unspecified place in unspecified non-institutional (private) residence as the place of occurrence of the external cause; F10.129 Alcohol abuse with intoxication, unspecified

== ENCOUNTER 2018-08-05 23:49 | Observation (INO) | payer MEDICAID ==
[2018-08-06 00:05] VITALS: BMI 20.7
--- NOTE | 2018-08-06 01:01 | ED PDOC ---
Arrival/HPI - General Chief Complaint: Palpitations Time Seen by Provider: 08/05/18 23:52 Historian: Patient - History of Present Illness Narrative History of Present Illness (Text): 08/06/18 00:57 43 year old male, with a past medical history of SVT, who presents to the emergency department complaining of palpitations and chest pain onset yesterday evening. Patient reports he experienced symptoms again just prior to arrival. He denies fever, cough, chills, headache, or any other somatic complaints. Patient denies any drug use or alcohol use. Time/Duration: 24 hours Symptom Onset: Gradual Symptom Course: Unchanged Activities at Onset: Light Context: Home Past Medical History - Provider Review Nursing Documentation Reviewed: Yes - Infectious Disease Hx of Infectious Diseases: None - Past Medical History Past Medical History: No Previous - Cardiac Hx Cardiac Disorders: Yes (chest pain) - Pulmonary Hx Respiratory Disorders: No - Neurological Hx Neurological Disorder: Yes Hx Seizures: Yes - HEENT Hx HEENT Disorder: Yes Other/Comment: right orbital fx 09/2016 - Renal Hx Renal Disorder: No - Endocrine/Metabolic Hx Endocrine Disorders: No - Hematological/Oncological Hx Blood Disorders: No - Integumentary Hx Dermatological Disorder: Yes Other/Comment: callouses x2 bottom left foot - Musculoskeletal/Rheumatological Hx Falls: Yes - Gastrointestinal Hx Gastrointestinal Disorders: No - Genitourinary/Gynecological Hx Genitourinary Disorders: No - Psychiatric Hx Psychophysiologic Disorder: No Hx Substance Use: Yes (marijuana daily) Other/Comment: smokes marijuana daily, 2 drinks a day - Past Surgical History Past Surgical History: No Previous - Anesthesia Hx Anesthesia: No Hx Anesthesia Reactions: No Hx Malignant Hyperthermia: No - Suicidal Assessment Feels Threatened In Home Enviroment: No Family/Social History - Physician Review Nursing Documentation Reviewed: Yes Family/Social History: Unknown Family HX Smoking Status: Former Smoker Hx Alcohol Use: Yes (2 drinks daily) Hx Substance Use: Yes (marijuana daily) Substance used: Mariquana Allergies/Home Meds Allergies/Adverse Reactions: Allergies No Known Allergies Allergy (Verified 06/24/18 14:04) Review of Systems - Physician Review All systems were reviewed & negative as marked: Yes - Review of Systems Constitutional: absent: Fevers Respiratory: absent: SOB, Cough Cardiovascular: Palpitations. absent: Chest Pain Neurological: absent: Headache Physical Exam Vital Signs Reviewed: Yes Vital Signs Temp Pulse Resp BP Pulse Ox 05/07/19 00:10 97.6 F 96 H 16 134/81 96 Temperature: Afebrile Blood Pressure: Normal Pulse: Regular Respiratory Rate: Normal Appearance: Positive for: Well-Appearing, Non-Toxic, Comfortable Pain Distress: None Mental Status: Positive for: Alert and Oriented X 3 - Systems Exam Head: Present: Atraumatic, Normocephalic Pupils: Present: PERRL Extroacular Muscles: Present: EOMI Conjunctiva: Present: Normal Mouth: Present: Moist Mucous Membranes Neck: Present: Normal Range of Motion Respiratory/Chest: Present: Clear to Auscultation, Good Air Exchange. No: Respiratory Distress, Accessory Muscle Use Cardiovascular: Present: Regular Rate and Rhythm, Normal S1, S2. No: Murmurs Abdomen: No: Tenderness, Distention, Peritoneal Signs Back: Present: Normal Inspection Upper Extremity: Present: Normal Inspection. No: Cyanosis, Edema Lower Extremity: Present: Normal Inspection. No: Edema Neurological: Present: GCS=15, Speech Normal Skin: Present: Warm, Dry, Normal Color. No: Rashes Psychiatric: Present: Alert, Oriented x 3, Normal Insight, Normal Concentration Medical Decision Making ED Course and Treatment: 08/06/18 00:55 Impression: 43 year old male presents to the ED complaining of palpitations and chest discomfort onset yesterday evening. Differential Diagnosis included but are not limited to: Plan: -- EKG -- Labs -- Chest X-ray -- Reassess and disposition Prior Visits: Notes and results from previous visits were reviewed. Progress Notes: 08/06/18 03:13 Case discussed with house doctor, Dr. Kamara and neuropsychology medical consultant. - RAD Interpretation Radiology Orders: 08/06/18 00:38 CHEST PORTABLE [RAD] Stat - Scribe Statement The provider has reviewed the documentation as recorded by the Scribe Mona Florentino All medical record entries made by the Scribe were at my direction and personally dictated by me. I have reviewed the chart and agree that the record accurately reflects my personal performance of the history, physical exam, medical decision making, and the department course for this patient. I have also personally directed, reviewed, and agree with the discharge instructions and disposition. Disposition/Present on Arrival - Present on Arrival Any Indicators Present on Arrival: No History of DVT/PE: No History of Uncontrolled Diabetes: Yes Urinary Catheter: No History of Decub. Ulcer: No History Surgical Site Infection Following: None - Disposition Have Diagnosis and Disposition been Completed?: Yes Diagnosis: Chest pain, Palpitations Disposition: HOSPITALIZED Disposition Time: 03:12 Patient Plan: Observation Patient Problems: Current Active Problems Problem Status Onset Chest pain Acute Palpitations Acute Condition: STABLE
[2018-08-06 02:24] LABS: HEMOGLOBIN 14.1 g/dL (14.0-18.0); MEAN CORPUSCULAR HEMOGLOBIN 33.3 pg (25.0-35.0); MEAN CORPUSCULAR HGB CONC 34.6 g/dl (31.0-37.0); MEAN PLATELET VOLUME 8.4 fl (7.0-11.0); RBC 4.24 10^6/uL (3.5-6.1); RED CELL DISTRIBUTION WIDTH 12.2 % (11.5-14.5)
[2018-08-06 02:26] LABS: ALB/GLOB RATIO 1.5 (1.1-1.8); ALBUMIN 4.1 g/dL (3.0-4.8); ALT/SGPT 25 U/L (7-56); AST/SGOT 42 U/L (17-59); BLOOD UREA NITROGEN 14 mg/dL (7-21); GFR NON-AFRICAN AMERICAN > 60; MEAN CELL VOLUME 96.2 fl (80.0-105.0)
[2018-08-06 02:37] LABS: TROPONIN I < 0.01 ng/mL
[2018-08-06] MEDS ORDERED: Potassium Chloride 20 mEq ER Tab PO STA (03:08)
--- NOTE | 2018-08-06 08:55 | CARD ---
APPROVED REPORT Date of service: 08/06/2018 EKG Measurement Heart [id number] <Conclusion> Normal sinus rhythm Nonspecific ST-T abnormalities Borderline ECG
--- NOTE | 2018-08-06 09:02 | RAD ---
Date of service: 08/06/2018 HISTORY: Palpitations. COMPARISON: No prior. FINDINGS: LUNGS: No active pulmonary disease. PLEURA: No significant pleural effusion identified, no pneumothorax apparent. CARDIOVASCULAR: No atherosclerotic calcification present No radiographic findings to suggest acute or significant cardiovascular disease. OSSEOUS STRUCTURES: No significant abnormalities. VISUALIZED UPPER ABDOMEN: Normal. OTHER FINDINGS: None. IMPRESSION: No active disease.
[2018-08-06 09:41] LABS: LDL CHOLESTEROL 60 mg/dL (0-129)
[2018-08-06 09:43] LABS: BLOOD UREA NITROGEN 10 mg/dL (7-21); CALCIUM 9.1 mg/dL (8.4-10.5); GFR NON-AFRICAN AMERICAN > 60; HDL CHOLESTEROL 59 mg/dL (29-60)
[2018-08-06 12:01] LABS: TROPONIN I < 0.01 ng/mL
[2018-08-06] MEDS ORDERED: Potassium Chloride 40 mEq/30 ml LIQ UD PO ONE (12:33)
--- NOTE | 2018-08-06 12:37 | CON ---
DATE OF CONSULTATION: 08/06/2018 REQUESTING PHYSICIAN: Dr. Romano. REASON FOR CONSULTATION: Tachycardia, chest pain. HISTORY: This is a 43-year-old man, who reportedly has a history of SVT in the past, who noticed palpitations and chest discomfort last evening. He states that he took several unspecified pills, which have not given him in the past, with some improvement in his heart rate. He was brought to the emergency room and admitted. Upon arrival, his electrocardiogram revealed a sinus rhythm. He describes his chest pain as tightness in the center of his chest, occurring with his palpitations. He cannot recall having had a prior stress test performed. MEDICATIONS: His medications at home are uncertain. He does not take daily medicines, however. ALLERGIES: None. PAST MEDICAL HISTORY: Notable for a prior right orbital fracture. SOCIAL HISTORY: He is a former tobacco smoker. He does smoke marijuana daily. He drinks several alcoholic beverages a day. FAMILY HISTORY: Both parents are from unknown cause. REVIEW OF SYSTEMS: A 12-point review of systems is notable mainly for the problems mentioned above. He states he is fairly active with no exertional dyspnea or chest pain. PHYSICAL EXAMINATION: GENERAL: He is a somewhat disheveled-appearing, thin, middle-aged man. VITAL SIGNS: His blood pressure is 112/76 with a pulse of 60 and sinus, respirations are 14. He is afebrile. HEENT: Normocephalic, atraumatic. NECK: Supple. No JVD noted. CHEST: Few scattered rhonchi heard. HEART: PMI in normal position. No pathological murmurs or gallops noted. ABDOMEN: Soft, nontender with normoactive bowel sounds. EXTREMITIES: No clubbing, cyanosis, or edema. SKIN: Warm and dry. PSYCHIATRIC: Normal mood and affect. NEUROLOGICAL: Alert and oriented x3. No gross motor or sensory deficits notable. DIAGNOSTIC DATA: White count is 7, hemoglobin and hematocrit are 14.1 and 40.8 with a platelet count of 243,000. Initial potassium was 3.3 and repeat is 3.5. BUN and creatinine are 14 and 0.8. Alcohol is not detected. Initial troponin is not detected. Cholesterol 142 with HDL 59, LDL 60, triglycerides 44. Chest x-ray reveals normal cardiac silhouette with clear lung vaughn. Electrocardiogram reveals sinus rhythm with nonspecific ST-T abnormalities. IMPRESSION: 1. Episode of tachycardia suspicious for recurrent supraventricular tachycardia given his clinical history. 2. Chest pain, unclear if this was all secondary to his tachycardia or due to underlying cardiac ischemia and no clear evidence of acute cardiac injury on initial evaluation. 3. History of tobacco abuse. 4. Rest of problems as noted. RECOMMENDATIONS: Followup troponins are scheduled. An echocardiogram will be ordered. He was requested to bring copies of his medications he uses at home. Continue smoking abstinence was advised and an outpatient stress test can be planned as soon his cardiac enzymes are negative. If he has recurrent tachycardia, he will have further evaluation of this and additional therapy can be entertained. Thank you for this consultation. Maged Haque MD
--- NOTE | 2018-08-06 14:23 | CP.PCM.HP ---
<Murray Aly - Last Filed: 08/06/18 14:15> History of Present Illness - History of Present Illness History of Present Illness: Murray Aly, PGY1 Hospital H&P This is a 43 year old male with PMH of SVT and polysubstance abuse presenting to the hospital for chest pain and palpitations that began at 10pm last night. Pain is described as sharp, constant, rated 7/10 at worst, began while doing chores around the house, located in the left side of the chest, radiating to the right side and associated with diaphoresis. He states pain is improved after taking unknown heart medication. He denies any exacerbating factors. He admits to similar symptoms 5 months ago for which he was admitted for similar symptoms and found to have SVT. Echo at that time showed EF of 30%, global hypokinesis of LV and patient subsequently discharged on cardizem, coreg and cozaar, Currently, patient states CP is resolved and denies SOB, fevers, nausea, vomiting, headaches, dizziness, abdominal pain, diarrhea, constipation, urinary complaints, numbness, tingling, recent travel and recent sickness. 12 point ROS noted here, otherwise unremarkable. PMH: SVT and polysubstance abuse PMD: denies SH: smokes 1ppd for 20 years, marijuana use daily, 2-3 beers every night. Denies use of other illicit drugs Surgeries: denies FH: denies All: NKDA Present on Admission - Present on Admission Any Indicators Present on Admission: No Past Patient History - Infectious Disease Hx of Infectious Diseases: None - Past Social History Smoking Status: Heavy Smoker > 10 Cigarettes Daily - CARDIAC Hx Cardiac Disorders: Yes Hx Cardia Arrhythmia: Yes (SVTs) - PULMONARY Hx Respiratory Disorders: No - NEUROLOGICAL Hx Neurological Disorder: Yes Hx Seizures: Yes - HEENT Hx HEENT Problems: No - RENAL Hx Chronic Kidney Disease: No - ENDOCRINE/METABOLIC Hx Endocrine Disorders: No - HEMATOLOGICAL/ONCOLOGICAL Hx Blood Disorders: No - INTEGUMENTARY Hx Dermatological Problems: No - MUSCULOSKELETAL/RHEUMATOLOGICAL Hx Musculoskeletal Disorders: Yes Hx Falls: Yes - GASTROINTESTINAL Hx Gastrointestinal Disorders: No - GENITOURINARY/GYNECOLOGICAL Hx Genitourinary Disorders: No - PSYCHIATRIC Hx Psychophysiologic Disorder: No Hx Substance Use: Yes - SURGICAL HISTORY Hx Surgeries: Yes Other/Comment: R Orbital sx - ANESTHESIA Hx Anesthesia: No Hx Anesthesia Reactions: No Hx Malignant Hyperthermia: No Meds Allergies/Adverse Reactions: Allergies Allergy/AdvReac Type Severity Reaction Status Date / Time No Known Allergies Allergy Verified 06/24/18 14:04 Physical Exam - Constitutional Appears: Non-toxic, No Acute Distress - Head Exam Head Exam: ATRAUMATIC, NORMAL INSPECTION - Eye Exam Eye Exam: EOMI Pupil Exam: PERRL - ENT Exam ENT Exam: Mucous Membranes Moist - Neck Exam Neck exam: Positive for: Normal Inspection - Respiratory Exam Respiratory Exam: Clear to Auscultation Bilateral, NORMAL BREATHING PATTERN. absent: Accessory Muscle Use, Wheezes, Respiratory Distress - Cardiovascular Exam Cardiovascular Exam: REGULAR RHYTHM, +S1, +S2. absent: Tachycardia - GI/Abdominal Exam GI & Abdominal Exam: Normal Bowel Sounds, Soft. absent: Firm, Guarding, Rebound, Tenderness - Extremities Exam Extremities exam: Positive for: normal inspection, pedal pulses present. Negative for: calf tenderness, tenderness - Back Exam Back exam: NORMAL INSPECTION - Neurological Exam Neurological exam: Alert, CN II-XII Intact, Oriented x3 - Skin Skin Exam: Normal Color, Warm Results - Vital Signs Recent Vital Signs: Last Vital Signs Temp 97.4 F L 08/06/18 08:45 Pulse 58 L 08/06/18 10:00 Resp 18 08/06/18 08:45 BP 112/76 08/06/18 08:45 Pulse Ox 98 08/06/18 08:45 - Labs Result Diagrams: 08/06/18 02:03 08/06/18 09:00 Labs: Laboratory Results - last 24 hr 08/06/18 08/06/18 08/06/18 02:03 02:03 02:03 WBC 7.0 D RBC 4.24 Hgb 14.1 Hct 40.8 L MCV 96.2 D MCH 33.3 MCHC 34.6 RDW 12.2 Plt Count 243 MPV 8.4 Sodium 137 Potassium 3.3 L Chloride 100 Carbon Dioxide 28 Anion Gap 13 BUN 14 Creatinine 0.8 Est GFR ( Amer) > 60 Est GFR (Non-Af Amer) > 60 Random Glucose 139 H Calcium 9.0 Magnesium Total Bilirubin 1.6 H AST 42 ALT 25 Alkaline Phosphatase 56 Lactate Dehydrogenase 396 Total Creatine Kinase 176 Troponin I < 0.01 Total Protein 7.0 Albumin 4.1 Globulin 2.8 Albumin/Globulin Ratio 1.5 Triglycerides Cholesterol LDL Cholesterol Direct HDL Cholesterol TSH 3rd Generation Alcohol, Quantitative < 10 08/06/18 08/06/18 08/06/18 02:03 09:00 11:30 WBC RBC Hgb Hct MCV MCH MCHC RDW Plt Count MPV Sodium 140 Potassium 3.5 L Chloride 101 Carbon Dioxide 31 Anion Gap 11 BUN 10 Creatinine 0.8 Est GFR ( Amer) > 60 Est GFR (Non-Af Amer) > 60 Random Glucose 156 H Calcium 9.1 Magnesium 1.8 Total Bilirubin AST ALT Alkaline Phosphatase Lactate Dehydrogenase 330 L Total Creatine Kinase 143 Troponin I < 0.01 Total Protein Albumin Globulin Albumin/Globulin Ratio Triglycerides 44 Cholesterol 142 LDL Cholesterol Direct 60 HDL Cholesterol 59 TSH 3rd Generation Alcohol, Quantitative 08/06/18 13:05 WBC RBC Hgb Hct MCV MCH MCHC RDW Plt Count MPV Sodium Potassium Chloride Carbon Dioxide Anion Gap BUN Creatinine Est GFR ( Amer) Est GFR (Non-Af Amer) Random Glucose Calcium Magnesium Total Bilirubin AST ALT Alkaline Phosphatase Lactate Dehydrogenase Total Creatine Kinase Troponin I Total Protein Albumin Globulin Albumin/Globulin Ratio Triglycerides Cholesterol LDL Cholesterol Direct HDL Cholesterol TSH 3rd Generation 0.40 L Alcohol, Quantitative Assessment & Plan - Assessment and Plan (Free Text) Assessment: This is a 43 year old male with PMH of SVT and polysubstance abuse presenting to the hospital for chest pain and palpitations. Plan: Chest pain -concern for recurrent SVT -serial troponins pending, initial troponin <0.01 -initial EKG shows NSR, no ST changes -CXR shows no active disease -echo pending -UDS pending -outpatient cardiac stress test -lipid panel WNL -TSH noted to be 0.40 -continue coreg 3.125mg BID -start ASA -cardiology on consult, Dr. Torres Hypokalemia -repleted -monitor PPX -DVT ppx -HHD Patient seen and case discussed with attending, Dr. Romano <Ruddy Romano - Last Filed: 08/06/18 14:52> Results - Vital Signs Recent Vital Signs: Last Vital Signs Temp 97.4 F L 08/06/18 08:45 Pulse 58 L 08/06/18 10:00 Resp 18 08/06/18 08:45 BP 112/76 08/06/18 08:45 Pulse Ox 98 08/06/18 08:45 - Labs Result Diagrams: 08/06/18 02:03 08/06/18 09:00 Labs: Laboratory Results - last 24 hr 08/06/18 08/06/18 08/06/18 02:03 02:03 02:03 WBC 7.0 D RBC 4.24 Hgb 14.1 Hct 40.8 L MCV 96.2 D MCH 33.3 MCHC 34.6 RDW 12.2 Plt Count 243 MPV 8.4 Sodium 137 Potassium 3.3 L Chloride 100 Carbon Dioxide 28 Anion Gap 13 BUN 14 Creatinine 0.8 Est GFR ( Amer) > 60 Est GFR (Non-Af Amer) > 60 Random Glucose 139 H Calcium 9.0 Magnesium Total Bilirubin 1.6 H AST 42 ALT 25 Alkaline Phosphatase 56 Lactate Dehydrogenase 396 Total Creatine Kinase 176 Troponin I < 0.01 Total Protein 7.0 Albumin 4.1 Globulin 2.8 Albumin/Globulin Ratio 1.5 Triglycerides Cholesterol LDL Cholesterol Direct HDL Cholesterol TSH 3rd Generation Alcohol, Quantitative < 10 08/06/18 08/06/18 08/06/18 02:03 09:00 11:30 WBC RBC Hgb Hct MCV MCH MCHC RDW Plt Count MPV Sodium 140 Potassium 3.5 L Chloride 101 Carbon Dioxide 31 Anion Gap 11 BUN 10 Creatinine 0.8 Est GFR ( Amer) > 60 Est GFR (Non-Af Amer) > 60 Random Glucose 156 H Calcium 9.1 Magnesium 1.8 Total Bilirubin AST ALT Alkaline Phosphatase Lactate Dehydrogenase 330 L Total Creatine Kinase 143 Troponin I < 0.01 Total Protein Albumin Globulin Albumin/Globulin Ratio Triglycerides 44 Cholesterol 142 LDL Cholesterol Direct 60 HDL Cholesterol 59 TSH 3rd Generation Alcohol, Quantitative 08/06/18 13:05 WBC RBC Hgb Hct MCV MCH MCHC RDW Plt Count MPV Sodium Potassium Chloride Carbon Dioxide Anion Gap BUN Creatinine Est GFR ( Amer) Est GFR (Non-Af Amer) Random Glucose Calcium Magnesium Total Bilirubin AST ALT Alkaline Phosphatase Lactate Dehydrogenase Total Creatine Kinase Troponin I Total Protein Albumin Globulin Albumin/Globulin Ratio Triglycerides Cholesterol LDL Cholesterol Direct HDL Cholesterol TSH 3rd Generation 0.40 L Alcohol, Quantitative Attending/Attestation - Attestation I have personally seen and examined this patient.: Yes I have fully participated in the care of the patient.: Yes I have reviewed all pertinent clinical information: Yes Notes (Text): 08/06/18 14:45 43 year old male with past medical history of hypertension, SVT and substance abuse who presents with complaint of chest pain and palpitations. Will obtain serial cardiac enzymes. Cardiology evaluation was appreciated. Echocardiogram is ordered and pending. Continue with aspirin and coreg. Confirm other home medications although patient admits to medication noncompliance. Will replete and repeat potassium. TSH is 0.4. Will obtain free T4 and repeat TSH. Urine drug screen is pending. Patient was counselled on alcohol abstinence. Counselled on risks of continued substance abuse. Ruddy Romano MD Hospitalist.
[2018-08-06 19:13] LABS: TROPONIN I < 0.01 ng/mL
[2018-08-07 04:13] VITALS: RESP 18
[2018-08-07 06:54] LABS: ALB/GLOB RATIO 1.3 (1.1-1.8); ALBUMIN 3.9 g/dL (3.0-4.8); ALT/SGPT 19 U/L (7-56); AST/SGOT 24 U/L (17-59); BLOOD UREA NITROGEN 7 mg/dL (7-21); CALCIUM 8.9 mg/dL (8.4-10.5); GFR NON-AFRICAN AMERICAN > 60
[2018-08-07 06:55] LABS: HEMOGLOBIN 14.8 g/dL (14.0-18.0); MEAN CELL VOLUME 98.7 fl (80.0-105.0); MEAN CORPUSCULAR HGB CONC 33.4 g/dl (31.0-37.0); MEAN PLATELET VOLUME 8.7 fl (7.0-11.0); RBC 4.49 10^6/uL (3.5-6.1); RED CELL DISTRIBUTION WIDTH 12.4 % (11.5-14.5); WHITE BLOOD COUNT 5.8 10^3/uL (4.5-11.0)
[2018-08-07 08:14] VITALS: BP 118/84; PULSE 74; TEMP 98.3; O2SAT 97
[2018-08-07 08:56] LABS: BARBITURATES, UR NEGATIVE (NEGATIVE); BENZODIAZEPINES, UR NEGATIVE (NEGATIVE); OPIATES, UR NEGATIVE (NEGATIVE); PHENCYCLIDINE, UR POSITIVE (NEGATIVE)
--- NOTE | 2018-08-07 10:22 | PN ---
DATE: 08/07/2018 SUBJECTIVE: The patient seen sitting in bed on telemetry. He is anxious to go home. He has had no recurrent palpitations. Denies any chest pain. Cardiac enzymes were all negative. CURRENT MEDICATIONS: Include carvedilol 3.125 mg b.i.d. and aspirin once daily. OBJECTIVE: GENERAL: He is a thin, middle-aged man. VITAL SIGNS: Blood pressure is 118/84, pulse 74 and sinus, respirations 14. He is afebrile. HEENT: No JVD. CHEST: Few scattered rhonchi. HEART: PMI was of normal position. No pathological gallops noted. ABDOMEN: Soft, nontender with bowel sounds. EXTREMITIES: No edema. DIAGNOSTICS DATA: Potassium 3.8, BUN and creatinine are 7 and 0.7. White count is 5.8, hemoglobin and hematocrit 14.8 and 44.3 with platelet count of 220,000. All cardiac enzymes were negative. IMPRESSION: 1. Recent palpitations suspicious for possible recurrent supraventricular tachycardia, now on oral beta-jayjay. 2. Chest pain in the setting of a rapid heart rate with no clear evidence cardiac ischemia. 3. History of tobacco abuse. RECOMMENDATIONS: From a cardiac standpoint, he appears stable for discharge home at this time. Outpatient followup can be arranged. Smoking continue, smoking abstinence was advised. If he has recurrent symptoms, more extensive cardiac workup can be planned. Maged Haque MD
--- NOTE | 2018-08-07 12:37 | CP.PCM.DIS ---
<Murray Aly - Last Filed: 08/07/18 12:22> Provider - Provider Date of Admission: 08/06/18 03:13 Attending physician: Ruddy Romano MD Primary care physician: NO PRIMARY CARE PROVIDER Consults: 08/06/18 07:29 Consult [Physician Consult] Routine Comment: Consulting Provider: Maged Haque Consulting Physician: Maged Haque Reason for Consult: chest pain Time Spent in preparation of Discharge (in minutes): 35 Hospital Course - Lab Results Lab Results: Most Recent Lab Values WBC 5.8 10^3/uL (4.5-11.0) 08/07/18 06:10 RBC 4.49 10^6/uL (3.5-6.1) 08/07/18 06:10 Hgb 14.8 g/dL (14.0-18.0) 08/07/18 06:10 Hct 44.3 % (42.0-52.0) 08/07/18 06:10 MCV 98.7 fl (80.0-105.0) 08/07/18 06:10 MCH 33.0 pg (25.0-35.0) 08/07/18 06:10 MCHC 33.4 g/dl (31.0-37.0) 08/07/18 06:10 RDW 12.4 % (11.5-14.5) 08/07/18 06:10 Plt Count 220 10^3/uL (120.0-450.0) 08/07/18 06:10 MPV 8.7 fl (7.0-11.0) 08/07/18 06:10 Sodium 141 mmol/L (132-148) 08/07/18 06:10 Potassium 3.8 mmol/L (3.6-5.0) 08/07/18 06:10 Chloride 106 mmol/L (98-107) 08/07/18 06:10 Carbon Dioxide 30 mmol/L (21-33) 08/07/18 06:10 Anion Gap 9 (10-20) L 08/07/18 06:10 BUN 7 mg/dL (7-21) 08/07/18 06:10 Creatinine 0.7 mg/dl (0.8-1.5) L 08/07/18 06:10 Est GFR ( Amer) > 60 08/07/18 06:10 Est GFR (Non-Af Amer) > 60 08/07/18 06:10 Random Glucose 101 mg/dL (70-110) 08/07/18 06:10 Calcium 8.9 mg/dL (8.4-10.5) 08/07/18 06:10 Magnesium 1.8 mg/dL (1.7-2.2) 08/07/18 06:10 Total Bilirubin 1.2 mg/dL (0.2-1.3) 08/07/18 06:10 AST 24 U/L (17-59) 08/07/18 06:10 ALT 19 U/L (7-56) 08/07/18 06:10 Alkaline Phosphatase 53 U/L (38-126) 08/07/18 06:10 Lactate Dehydrogenase 355 U/L (333-699) 08/06/18 18:15 Total Creatine Kinase 137 U/L (35-230) 08/06/18 18:15 Troponin I < 0.01 ng/mL 08/06/18 18:15 Total Protein 6.9 g/dL (5.8-8.3) 08/07/18 06:10 Albumin 3.9 g/dL (3.0-4.8) 08/07/18 06:10 Globulin 3.1 gm/dL 08/07/18 06:10 Albumin/Globulin Ratio 1.3 (1.1-1.8) 08/07/18 06:10 Triglycerides 44 mg/dL (35-160) 08/06/18 09:00 Cholesterol 142 mg/dL (130-200) 08/06/18 09:00 LDL Cholesterol Direct 60 mg/dL (0-129) 08/06/18 09:00 HDL Cholesterol 59 mg/dL (29-60) 08/06/18 09:00 Free T4 1.10 ng/dL (0.78-2.19) 08/06/18 17:30 TSH 3rd Generation 0.23 mIU/mL (0.46-4.68) L 08/07/18 06:10 Urine Opiates Screen Negative (NEGATIVE) 08/07/18 08:20 Urine Methadone Screen Negative (NEGATIVE) 08/07/18 08:20 Ur Barbiturates Screen Negative (NEGATIVE) 08/07/18 08:20 Ur Phencyclidine Scrn Positive (NEGATIVE) H 08/07/18 08:20 Ur Amphetamines Screen Negative (NEGATIVE) 08/07/18 08:20 U Benzodiazepines Scrn Negative (NEGATIVE) 08/07/18 08:20 U Oth Cocaine Metabols Negative (NEGATIVE) 08/07/18 08:20 U Cannabinoids Screen Positive (NEGATIVE) H 08/07/18 08:20 Alcohol, Quantitative < 10 mg/dL (0-10) 08/06/18 02:03 Physical Exam - Constitutional Appears: Non-toxic, No Acute Distress - Head Exam Head Exam: ATRAUMATIC, NORMAL INSPECTION - Eye Exam Eye Exam: EOMI Pupil Exam: PERRL - ENT Exam ENT Exam: Mucous Membranes Moist - Neck Exam Neck exam: Positive for: Normal Inspection - Respiratory Exam Respiratory Exam: Clear to Auscultation Bilateral, NORMAL BREATHING PATTERN. absent: Accessory Muscle Use, Wheezes, Respiratory Distress - Cardiovascular Exam Cardiovascular Exam: REGULAR RHYTHM, +S1, +S2. absent: Tachycardia - GI/Abdominal Exam GI & Abdominal Exam: Normal Bowel Sounds, Soft. absent: Firm, Guarding, Rebound, Tenderness - Extremities Exam Extremities exam: Positive for: normal inspection, pedal pulses present. Negative for: calf tenderness, tenderness - Back Exam Back exam: NORMAL INSPECTION - Neurological Exam Neurological exam: Alert, CN II-XII Intact, Oriented x3 - Skin Skin Exam: Normal Color, Warm - Hospital Course Hospital Course: Upon admission, this is a 43 year old male with PMH of SVT and polysubstance abuse presenting to the hospital for chest pain and palpitations that began at 10pm last night. Pain is described as sharp, constant, rated 7/10 at worst, began while doing chores around the house, located in the left side of the chest, radiating to the right side and associated with diaphoresis. He states pain is improved after taking unknown heart medication. He denies any exacerbating factors. He admits to similar symptoms 5 months ago for which he was admitted for similar symptoms and found to have SVT. Echo at that time showed EF of 30%, global hypokinesis of LV and patient subsequently discharged on cardizem, coreg and cozaar, Currently, patient states CP is resolved and denies SOB, fevers, nausea, vomiting, headaches, dizziness, abdominal pain. During hospital course, EKG showed NSR without ST changes and troponins x3 were unremarkable. Patient noted to have inconsistent use of previous cardiac medications and restarted on coreg. Cardiology was consulted and recommended outpatient stress test as well as follow up in his office for restarting previous cardiac medications due to low-normal heart rate. Patient noted to have low TSH and normal free T4 and advised to follow up thyroid levels in 4-6 weeks. Lipid panel was WNL. All of patient's questions were answered and patient agreed with discharge today and follow up with PMD. Discharge Plan - Discharge Medications Prescriptions: Aspirin [Ecotrin] 81 mg PO DAILY #30 tabec Carvedilol [Coreg] 3.125 mg PO BID 14 Days tab - Follow Up Plan Condition: STABLE Disposition: HOME/ ROUTINE Instructions: Chest Pain (DC), Palpitations (DC) Additional Instructions: Please follow up with your PMD within 5-7 days of discharge. As per our discuss ion, you wish to call and make an appointment that works for your. [facility] clinic provided to you. Please follow up with your ob gyn, Dr. Flores. within 5-7 days of discharge. Please start coreg 3.125mg BID. Please start taking aspirin daily. Please obtain refills from your PMD. Please stop cardizem and lisinopril. You ob gyn will reevaluate if you need to be on these medications. Please have outpatient cardiac stress test with your ob gyn. Please obtain TSH, T4 thyroid blood work in 4-6 weeks. Please stop using drugs as per our discussion. Please return to the ED for any new or worsening symptoms. Referrals: [facility] [Provider Group] PCP,NO [Primary Care Provider] - <Ruddy Romano - Last Filed: 08/07/18 12:51> Provider - Provider Date of Admission: 08/06/18 03:13 Attending physician: Ruddy Romano MD Primary care physician: NO PRIMARY CARE PROVIDER Consults: 08/06/18 07:29 Consult [Physician Consult] Routine Comment: Consulting Provider: Maged Haque Consulting Physician: Maged Haque Reason for Consult: chest pain Hospital Course - Lab Results Lab Results: Most Recent Lab Values WBC 5.8 10^3/uL (4.5-11.0) 08/07/18 06:10 RBC 4.49 10^6/uL (3.5-6.1) 08/07/18 06:10 Hgb 14.8 g/dL (14.0-18.0) 08/07/18 06:10 Hct 44.3 % (42.0-52.0) 08/07/18 06:10 MCV 98.7 fl (80.0-105.0) 08/07/18 06:10 MCH 33.0 pg (25.0-35.0) 08/07/18 06:10 MCHC 33.4 g/dl (31.0-37.0) 08/07/18 06:10 RDW 12.4 % (11.5-14.5) 08/07/18 06:10 Plt Count 220 10^3/uL (120.0-450.0) 08/07/18 06:10 MPV 8.7 fl (7.0-11.0) 08/07/18 06:10 Sodium 141 mmol/L (132-148) 08/07/18 06:10 Potassium 3.8 mmol/L (3.6-5.0) 08/07/18 06:10 Chloride 106 mmol/L (98-107) 08/07/18 06:10 Carbon Dioxide 30 mmol/L (21-33) 08/07/18 06:10 Anion Gap 9 (10-20) L 08/07/18 06:10 BUN 7 mg/dL (7-21) 08/07/18 06:10 Creatinine 0.7 mg/dl (0.8-1.5) L 08/07/18 06:10 Est GFR ( Amer) > 60 08/07/18 06:10 Est GFR (Non-Af Amer) > 60 08/07/18 06:10 Random Glucose 101 mg/dL (70-110) 08/07/18 06:10 Calcium 8.9 mg/dL (8.4-10.5) 08/07/18 06:10 Magnesium 1.8 mg/dL (1.7-2.2) 08/07/18 06:10 Total Bilirubin 1.2 mg/dL (0.2-1.3) 08/07/18 06:10 AST 24 U/L (17-59) 08/07/18 06:10 ALT 19 U/L (7-56) 08/07/18 06:10 Alkaline Phosphatase 53 U/L (38-126) 08/07/18 06:10 Lactate Dehydrogenase 355 U/L (333-699) 08/06/18 18:15 Total Creatine Kinase 137 U/L (35-230) 08/06/18 18:15 Troponin I < 0.01 ng/mL 08/06/18 18:15 Total Protein 6.9 g/dL (5.8-8.3) 08/07/18 06:10 Albumin 3.9 g/dL (3.0-4.8) 08/07/18 06:10 Globulin 3.1 gm/dL 08/07/18 06:10 Albumin/Globulin Ratio 1.3 (1.1-1.8) 08/07/18 06:10 Triglycerides 44 mg/dL (35-160) 08/06/18 09:00 Cholesterol 142 mg/dL (130-200) 08/06/18 09:00 LDL Cholesterol Direct 60 mg/dL (0-129) 08/06/18 09:00 HDL Cholesterol 59 mg/dL (29-60) 08/06/18 09:00 Free T4 1.10 ng/dL (0.78-2.19) 08/06/18 17:30 TSH 3rd Generation 0.23 mIU/mL (0.46-4.68) L 08/07/18 06:10 Urine Opiates Screen Negative (NEGATIVE) 08/07/18 08:20 Urine Methadone Screen Negative (NEGATIVE) 08/07/18 08:20 Ur Barbiturates Screen Negative (NEGATIVE) 08/07/18 08:20 Ur Phencyclidine Scrn Positive (NEGATIVE) H 08/07/18 08:20 Ur Amphetamines Screen Negative (NEGATIVE) 08/07/18 08:20 U Benzodiazepines Scrn Negative (NEGATIVE) 08/07/18 08:20 U Oth Cocaine Metabols Negative (NEGATIVE) 08/07/18 08:20 U Cannabinoids Screen Positive (NEGATIVE) H 08/07/18 08:20 Alcohol, Quantitative < 10 mg/dL (0-10) 08/06/18 02:03 Attending/Attestation - Attestation I have personally seen and examined this patient.: Yes I have fully participated in the care of the patient.: Yes I have reviewed all pertinent clinical information, including history, physical exam and plan: Yes Notes (Text): 08/07/18 12:45 43 year old male with past medical history of hypertension, SVT and substance abuse who presents with complaint of chest pain and palpitations. Serial cardiac enzymes were negative and ACS was ruled out. His symptoms resolved. He was seen by cardiology who agreed with aspirin and coreg and recommended outpatient stress test. He was counselled on medication compliance. Counselled on alcohol cessation and on risks of continued substance abuse. TSH was low with normal FT4 indicating possible subclinical hyperthyroidism. Patient was recommended to repeat TFTs in 4-6 weeks. Patient is discharged home to follow up at [facility]. Follow up with cardiology for outpatient stress test. Counselled on medication compliance. Counselled on smoking cessation. Counselled on alcohol abstinence. Counselled on risks of continued substance abuse. Continue with aspirin and coreg. Repeat TFTs in 4-6 weeks. Ruddy Romano MD Hospitalist.
== END 2018-08-07 11:21 | disposition home or self-care (01) ==
LOC: ED 23:49 → ERH 08-06 03:13 → 3RSO 08-06 05:18
PROVIDERS: ADMIT Hospitalist; ATTEND Internal Medicine
DX: R07.9 Chest pain, unspecified (principal); R00.2 Palpitations; I10 Essential (primary) hypertension; I47.1 Supraventricular tachycardia; F17.210 Nicotine dependence, cigarettes, uncomplicated; F12.90 Cannabis use, unspecified, uncomplicated
CPT/HCPCS: 36415; 71045; 80053; 80061; 80320; 80324; 80345; 80346; 80349; 80353; 80358; 80361; 82550; 83615; 83735; 83992; 84439; 84443; 84484; 85027; 93005; 99285; G0378; J3480

== ENCOUNTER 2018-08-11 00:45 | Emergency (ER) | payer MEDICAID ==
[2018-08-11 00:45] VITALS: BMI 20.7
[2018-08-11 00:57] VITALS: TEMP 98.1
[2018-08-11 01:52] VITALS: BP 116/68; PULSE 90; RESP 18; O2SAT 100
--- NOTE | 2018-08-11 05:15 | ED PDOC ---
Arrival/HPI - General Chief Complaint: Shortness Of Breath Historian: Patient - History of Present Illness Narrative History of Present Illness (Text): 08/11/18 05:13 A 43 year old male, whose past medical history includes substance abuse (marijuana and PCP) and seizure disorder, presents to the emergency department for smoking marijuana and now "shortness of breath." Patient denies any pain, or any other complaints at this time. He was discharged 3 days ago for similar presentation. Past Medical History - Provider Review Nursing Documentation Reviewed: Yes - Infectious Disease Hx of Infectious Diseases: None - Past Medical History Past Medical History: No Previous - Cardiac Hx Cardiac Disorders: Yes Hx Cardiac Arrhythmia: Yes (SVTs) - Pulmonary Hx Respiratory Disorders: No - Neurological Hx Neurological Disorder: Yes Hx Seizures: Yes - HEENT Hx HEENT Disorder: No - Renal Hx Renal Disorder: No - Endocrine/Metabolic Hx Endocrine Disorders: No - Hematological/Oncological Hx Blood Disorders: No - Integumentary Hx Dermatological Disorder: No - Musculoskeletal/Rheumatological Hx Musculoskeletal Disorders: Yes Hx Falls: Yes - Gastrointestinal Hx Gastrointestinal Disorders: No - Genitourinary/Gynecological Hx Genitourinary Disorders: No - Psychiatric Hx Psychophysiologic Disorder: No Hx Substance Use: Yes (pcp, marijuana) - Past Surgical History Past Surgical History: No Previous - Surgical History Other/Comment: R Orbital sx - Anesthesia Hx Anesthesia: No Hx Anesthesia Reactions: No Hx Malignant Hyperthermia: No - Suicidal Assessment Feels Threatened In Home Enviroment: No Family/Social History - Physician Review Nursing Documentation Reviewed: Yes Family/Social History: No Known Family HX Smoking Status: Heavy Smoker > 10 Cigarettes Daily Hx Alcohol Use: Yes Hx Substance Use: Yes (pcp, marijuana) Substance used: Mariquana Allergies/Home Meds Allergies/Adverse Reactions: Allergies No Known Allergies Allergy (Verified 08/11/18 00:50) Home Medications: Home Meds Medication Instructions Recorded Confirmed Losartan Potassium 25 mg PO DAILY 08/11/18 08/11/18 [email or web address] [Cardizem] 120 mg PO DAILY 08/11/18 08/11/18 Review of Systems - Physician Review All systems were reviewed & negative as marked: Yes - Review of Systems Respiratory: SOB (patient stated feeling "shortness of breath" after smoking marijuana.) Cardiovascular: absent: Chest Pain Physical Exam Vital Signs Reviewed: Yes Vital Signs Temp Pulse Resp BP Pulse Ox 08/11/18 01:51 90 18 116/68 100 08/11/18 01:02 20 99 08/11/18 00:56 98.1 F 98 H 18 109/68 99 Temperature: Afebrile Blood Pressure: Normal Pulse: Regular Respiratory Rate: Normal Appearance: Positive for: Well-Appearing, Non-Toxic, Comfortable Pain Distress: None Mental Status: Positive for: Alert and Oriented X 3 - Systems Exam Head: Present: Atraumatic, Normocephalic Pupils: Present: PERRL Extroacular Muscles: Present: EOMI Conjunctiva: Present: Normal Mouth: Present: Moist Mucous Membranes Neck: Present: Normal Range of Motion Respiratory/Chest: Present: Clear to Auscultation, Good Air Exchange. No: Resp iratory Distress, Accessory Muscle Use Cardiovascular: Present: Regular Rate and Rhythm, Normal S1, S2. No: Murmurs Abdomen: No: Tenderness, Distention, Peritoneal Signs Back: Present: Normal Inspection Upper Extremity: Present: Normal Inspection. No: Cyanosis, Edema Lower Extremity: Present: Normal Inspection. No: Edema Neurological: Present: GCS=15, CN II-XII Intact, Speech Normal Skin: Present: Warm, Dry, Normal Color. No: Rashes Psychiatric: Present: Alert, Oriented x 3, Normal Insight, Normal Concentration Medical Decision Making ED Course and Treatment: 08/11/18 05:14 Impression: 43 year old male with "shortness of breath" after smoking marijuana. Plan: -- EKG -- Reassess and disposition Progress Notes: EKG: Ordered, reviewed, and independently interpreted the EKG. Rate : 98 BPM Rhythm : NSR Interpretation : No ST-segment elevations or depressions, no T-wave inversions, normal intervals. Comparison : No previous EKG for comparison. - Scribe Statement The provider has reviewed the documentation as recorded by the Mac Chatman Provider Scribe Attestation: All medical record entries made by the Rafaelibanjel were at my direction and personally dictated by me. I have reviewed the chart and agree that the record accurately reflects my personal performance of the history, physical exam, medical decision making, and the department course for this patient. I have also personally directed, reviewed, and agree with the discharge instructions and disposition. Disposition/Present on Arrival - Present on Arrival Any Indicators Present on Arrival: No History of DVT/PE: No History of Uncontrolled Diabetes: No Urinary Catheter: No History of Decub. Ulcer: No History Surgical Site Infection Following: None - Disposition Have Diagnosis and Disposition been Completed?: Yes Diagnosis: Drug abuse Disposition: HOME/ ROUTINE Disposition Time: 01:30 Condition: IMPROVED Discharge Instructions (ExitCare): Drug Abuse and Drug Addiction (DC) Additional Instructions: JACKIE RODRIGUEZ, thank you for letting us take care of you today. The emergency medical care you received today was directed at your acute symptoms. If you were prescribed any medication, please fill it and take as directed. It may take several days for your symptoms to resolve. Return to the Emergency Department if your symptoms worsen, do not improve, or if you have any other problems. Please contact your doctor or call one of the physicians/clinics you have been referred to that are listed on the Patient Visit Information form that is included in your discharge packet. Bring any paperwork you were given at dischar ge with you along with any medications you are taking to your follow up visit. Our treatment cannot replace ongoing medical care by a primary care provider outside of the emergency department. Thank you for allowing the [facility] team to be part of your care today. Follow up with the clinic early next week for re-evaluation and further management. Referrals: [facility] [Outside] - Follow up with primary Candie Sierra MD [Medical Doctor] - Follow up with primary Forms: [employer] (Afghan)
--- NOTE | 2018-08-12 07:19 | CARD ---
APPROVED REPORT Date of service: 08/11/2018 EKG Measurement Heart [id number] 124P68 [id number] <Conclusion> Normal sinus rhythm Possible Left atrial enlargement Cannot rule out Anterior infarct, age undetermined Abnormal ECG
== END 2018-08-11 01:52 | disposition home or self-care (01) ==
LOC: ED 00:45
DX: F19.10 Other psychoactive substance abuse, uncomplicated (principal); I47.1 Supraventricular tachycardia; F17.210 Nicotine dependence, cigarettes, uncomplicated

== ENCOUNTER 2018-08-11 07:38 | Emergency (ER) | payer MEDICAID ==
[2018-08-11 07:39] VITALS: BMI 20.7
--- NOTE | 2018-08-11 08:22 | ED PDOC ---
Arrival/HPI - General Historian: Patient - History of Present Illness Narrative History of Present Illness (Text): 08/11/18 08:31 Pt is a 43 yo male with a PMH of SVT and cardiomyopathy EF30% who presents with a 1 day history of SOB which started while he was at home. Pt states he has SOB with associated anxiety. Pt is sleeping upon arrival to the ED suite. Pt denies chest pain, vertigo, or neurological symptoms. Time/Duration: 24 hours Symptom Course: Intermittent Quality: Unable to Describe Severity Level: 5 Context: Walking <Sam Terry - Last Filed: 08/11/18 08:41> <Nikita Verdin - Last Filed: 08/11/18 09:18> - General Chief Complaint: Anxiety Time Seen by Provider: 08/11/18 08:01 Past Medical History - Provider Review Nursing Documentation Reviewed: Yes - Infectious Disease Hx of Infectious Diseases: None - Past Medical History Past Medical History: No Previous - Cardiac Hx Cardiac Disorders: Yes Hx Cardiac Arrhythmia: Yes (SVTs) - Pulmonary Hx Respiratory Disorders: No - Neurological Hx Neurological Disorder: Yes Hx Seizures: Yes - HEENT Hx HEENT Disorder: No - Renal Hx Renal Disorder: No - Endocrine/Metabolic Hx Endocrine Disorders: No - Hematological/Oncological Hx Blood Disorders: No - Integumentary Hx Dermatological Disorder: No - Musculoskeletal/Rheumatological Hx Musculoskeletal Disorders: Yes Hx Falls: Yes - Gastrointestinal Hx Gastrointestinal Disorders: No - Genitourinary/Gynecological Hx Genitourinary Disorders: No - Psychiatric Hx Psychophysiologic Disorder: No Hx Substance Use: Yes (pcp, marijuana) - Past Surgical History Past Surgical History: No Previous - Surgical History Other/Comment: R Orbital sx - Anesthesia Hx Anesthesia: No Hx Anesthesia Reactions: No Hx Malignant Hyperthermia: No - Suicidal Assessment Feels Threatened In Home Enviroment: No <Sam Terry - Last Filed: 08/11/18 08:41> Family/Social History - Physician Review Nursing Documentation Reviewed: Yes Family/Social History: Diabetes, Hypertension Smoking Status: Heavy Smoker > 10 Cigarettes Daily Hx Alcohol Use: Yes Hx Substance Use: Yes (pcp, marijuana) Substance used: Mariquana <Sam Terry - Last Filed: 08/11/18 08:41> Allergies/Home Meds <Sma Terry - Last Filed: 08/11/18 08:41> <Nikita Verdin - Last Filed: 08/11/18 09:18> Allergies/Adverse Reactions: Allergies No Known Allergies Allergy (Verified 08/11/18 00:50) Home Medications: Home Meds Medication Instructions Recorded Confirmed Losartan Potassium 25 mg PO DAILY 08/11/18 08/11/18 [email or web address] [Cardizem] 120 mg PO DAILY 08/11/18 08/11/18 Review of Systems - Review of Systems Constitutional: Normal Eyes: Normal ENT: Normal Respiratory: SOB Cardiovascular: Normal Gastrointestinal: Normal Musculoskeletal: Normal Skin: Normal Neurological: Normal Endocrine: Normal Hemo/Lymphatic: Normal Psychiatric: Normal <Sam Terry - Last Filed: 08/11/18 08:41> Physical Exam Vital Signs Reviewed: Yes Temperature: Afebrile Blood Pressure: Normal Pulse: Regular Respiratory Rate: Normal Appearance: Positive for: Comfortable Mental Status: Positive for: Alert and Oriented X 3 - Systems Exam Head: Present: Atraumatic, Normocephalic Pupils: Present: PERRL Extroacular Muscles: Present: EOMI Mouth: Present: Moist Mucous Membranes Neck: Present: Normal Range of Motion Respiratory/Chest: Present: Clear to Auscultation Cardiovascular: Present: Regular Rate and Rhythm, Normal S1, S2. No: Murmurs Abdomen: Present: Normal Bowel Sounds. No: Tenderness, Distention Upper Extremity: Present: Normal Inspection Lower Extremity: Present: Normal Inspection Neurological: Present: GCS=15, CN II-XII Intact, Speech Normal Skin: Present: Warm, Dry, Normal Color. No: Rashes Psychiatric: Present: Alert, Oriented x 3 <Sam Terry - Last Filed: 08/11/18 08:41> Vital Signs Temp Pulse Resp BP Pulse Ox 08/11/18 08:53 98.4 F 65 18 109/71 100 <Nikita Verdin - Last Filed: 08/11/18 09:18> Medical Decision Making ED Course and Treatment: 08/11/18 08:35 Pt seen and examined likely has an anxiety component recommend pt to follow up with PMD as an out pt Pt seen, examined, assessment and plan discussed with Dr Lambert Terry PGY1 <Sam Terry - Last Filed: 08/11/18 08:41> ED Course and Treatment: 08/11/18 09:18 Patient Seen with Resident: In agreement with resident note which contains more details about the patient. Patient seen and evaluated with resident. Came up with plan and treatment together. <Nikita Verdin - Last Filed: 08/11/18 09:18> Disposition/Present on Arrival - Present on Arrival Any Indicators Present on Arrival: No History of DVT/PE: No History of Uncontrolled Diabetes: No Urinary Catheter: No History of Decub. Ulcer: No History Surgical Site Infection Following: None - Disposition Have Diagnosis and Disposition been Completed?: Yes Disposition Time: 08:41 <Sam Terry - Last Filed: 08/11/18 08:41> - Disposition Patient Plan: Discharge <Nikita Verdin - Last Filed: 08/11/18 09:18> - Disposition Diagnosis: Anxiety Disposition: HOME/ ROUTINE Condition: GOOD Discharge Instructions (ExitCare): Anxiety, Adult (DC) Referrals: PCP,NO [Primary Care Provider] - Follow up with primary Forms: [employer] (Kyrgyz)
[2018-08-11 08:54] VITALS: BP 109/71; PULSE 65; RESP 18; TEMP 98.4; O2SAT 100
== END 2018-08-11 09:06 | disposition home or self-care (01) ==
LOC: ED 07:38
DX: F41.9 Anxiety disorder, unspecified (principal); I47.1 Supraventricular tachycardia

== ENCOUNTER 2018-08-17 17:56 | Emergency (ER) | payer MEDICAID ==
[2018-08-17 17:57] VITALS: BMI 20.7
[2018-08-17 18:16] VITALS: PULSE 55; TEMP 98.4
--- NOTE | 2018-08-17 18:20 | ED PDOC ---
Arrival/HPI - General Chief Complaint: Chest Pain Time Seen by Provider: 08/17/18 18:10 Historian: Patient - History of Present Illness Narrative History of Present Illness (Text): 08/17/18 18:11 43 y/o male, pmh including htn/dvt/cerebral contusion with skull fracture history, nkda, psychiatric history including anxiety, c/o on and off chest soreness x 1 month. Pt. staetd that he has this chest pain on and off x 1 month, cleared by the electric repair supervisor on 07/2018 for this chronic condition, no change in severity or characteristic of the pain, seen in the ER about 1 week ago for the same problem, asymptomatic now, on and off soreness to the left chest, no pain, no palpitation, no shortness of breath, no night sweat, no rash, no dizziness, no change in vision, no other medical or psychological complaints. Past Medical History - Provider Review Nursing Documentation Reviewed: Yes - Infectious Disease Hx of Infectious Diseases: None - Past Medical History Past Medical History: No Previous - Cardiac Hx Cardiac Disorders: Yes Hx Cardiac Arrhythmia: Yes (SVTs) - Pulmonary Hx Respiratory Disorders: No - Neurological Hx Neurological Disorder: Yes Hx Seizures: Yes - HEENT Hx HEENT Disorder: No - Renal Hx Renal Disorder: No - Endocrine/Metabolic Hx Endocrine Disorders: No - Hematological/Oncological Hx Blood Disorders: No - Integumentary Hx Dermatological Disorder: No - Musculoskeletal/Rheumatological Hx Musculoskeletal Disorders: Yes Hx Falls: Yes - Gastrointestinal Hx Gastrointestinal Disorders: No - Genitourinary/Gynecological Hx Genitourinary Disorders: No - Psychiatric Hx Psychophysiologic Disorder: No Hx Substance Use: Yes (pcp, marijuana) - Past Surgical History Past Surgical History: No Previous - Surgical History Other/Comment: R Orbital sx - Anesthesia Hx Anesthesia: No Hx Anesthesia Reactions: No Hx Malignant Hyperthermia: No - Suicidal Assessment Feels Threatened In Home Enviroment: No Family/Social History - Physician Review Nursing Documentation Reviewed: Yes Family/Social History: Unknown Family HX Smoking Status: Heavy Smoker > 10 Cigarettes Daily Hx Alcohol Use: Yes Hx Substance Use: Yes (pcp, marijuana) Substance used: Mariquana Allergies/Home Meds Allergies/Adverse Reactions: Allergies No Known Allergies Allergy (Verified 08/11/18 00:50) Home Medications: Home Meds Medication Instructions Recorded Confirmed Losartan Potassium 25 mg PO DAILY 08/11/18 08/11/18 [email or web address] [Cardizem] 120 mg PO DAILY 08/11/18 08/11/18 Review of Systems - Review of Systems Constitutional: absent: Fatigue, Fevers Eyes: absent: Vision Changes ENT: absent: Hearing Changes Respiratory: absent: SOB, Cough Cardiovascular: Other (chest soreness). absent: Chest Pain Gastrointestinal: absent: Abdominal Pain, Nausea, Vomiting Musculoskeletal: absent: Arthralgias, Back Pain Skin: absent: Rash, Pruritis Neurological: absent: Headache, Dizziness Psychiatric: absent: Anxiety, Depression, Suicidal Ideation Physical Exam Vital Signs Reviewed: Yes Temperature: Afebrile Blood Pressure: Hypertensive Pulse: Bradycardic Respiratory Rate: Normal Appearance: Positive for: Well-Appearing, Non-Toxic, Comfortable Pain Distress: Mild Mental Status: Positive for: Alert and Oriented X 3 - Systems Exam Head: Present: Atraumatic, Normocephalic Pupils: Present: PERRL Extroacular Muscles: Present: EOMI Conjunctiva: Present: Normal Mouth: Present: Moist Mucous Membranes Neck: Present: Normal Range of Motion Respiratory/Chest: Present: Clear to Auscultation, Good Air Exchange. No: Respiratory Distress, Accessory Muscle Use, Wheezes, Decreased Breath Sounds, Rales, Retracting, Rhonchi, Tachypneic, Tender to Palpation Cardiovascular: Present: Regular Rate and Rhythm, Normal S1, S2. No: Murmurs Abdomen: Present: Normal Bowel Sounds. No: Tenderness, Distention, Peritoneal Signs, Rebound, Guarding, McBurney's Point Tender, Rovsing's Sign Present Back: Present: Normal Inspection Upper Extremity: Present: Normal Inspection, Normal ROM, NORMAL PULSES, Neurovascularly Intact, Capillary Refill < 2s. No: Cyanosis, Edema, Tenderness, Swelling, Deformity Lower Extremity: Present: Normal Inspection, NORMAL PULSES, Normal ROM, Neurovascularly Intact, Capillary Refill < 2 s. No: Edema, Martin's Sign, Tenderness, Swelling, Deformity Neurological: Present: GCS=15, CN II-XII Intact, Speech Normal, Motor Func Grossly Intact, Normal Cerebellar Funct, Gait Normal, Memory Normal Skin: Present: Warm, Dry, Normal Color. No: Rashes Psychiatric: Present: Alert, Oriented x 3, Normal Insight, Normal Concentration Medical Decision Making ED Course and Treatment: 08/17/18 18:26 -Labs -Ekg -Chest xray -Observe and reassess 08/17/18 19:30 -EKG: Sinus bradycardia @ 54 BPM, no ST elevation or depression, chronic T wave inversion lead III, no other T wave inversion. -Chest xray ER wet read: no active disease -Labs are non-significant -Trop is negative after 24 hours -BNP is negative -Dimer is negative -UDS ordered but patient refused to provide samples. -UA ordered but patient refused to provide samples. -Pt. has no urinary symptoms -HEART score is low, seen by the electric repair supervisor earlier this month and seen in the ER multiple rounds, would give electric repair supervisor and pmd outpatient follow up . Pt. is asymptomatic in the ER and asymptomatic now. -Pt. feels well -Case discussed with Dr. Smith, he agreed on the diagnosis/treatment discharge plan. -Discharge home with education on follow up with your own pmd and electric repair supervisor within 2 days, return to the ER for any new or worsening signs or symptoms. - PA / HUMAN SERVICES SUPERVISOR / Resident Statement MD/DO has reviewed & agrees with the documentation as recorded. Disposition/Present on Arrival - Present on Arrival Any Indicators Present on Arrival: No History of DVT/PE: No History of Uncontrolled Diabetes: No Urinary Catheter: No History of Decub. Ulcer: No History Surgical Site Infection Following: None - Disposition Have Diagnosis and Disposition been Completed?: Yes Diagnosis: Chronic chest pain Disposition: HOME/ ROUTINE Disposition Time: 19:32 Patient Plan: Discharge Patient Problems: Current Active Problems Problem Status Onset Chronic chest pain Acute Condition: GOOD Discharge Instructions (ExitCare): Chest Pain (ED) Additional Instructions: -Discharge home with education on follow up with your own pmd and electric repair supervisor within 2 days, continue medication as needed, return to the ER for any new or worsening signs or symptoms. Referrals: [facility] [Outside] - Follow up with primary Justin Landers MD [Staff Provider] - Follow up with primary Forms: [employer] (Danish), WORK NOTE
[2018-08-17] MEDS ORDERED: Sodium Chloride 0.9% 1,000 ML IV STA (18:28)
[2018-08-17 18:41] LABS: BASO # 0.03 K/mm3 (0.0-2.0); BASO % 0.4 % (0.0-3.0); EOS # 0.2 (0.0-0.7); EOS % 2.2 % (1.5-5.0); HEMOGLOBIN 14.3 g/dL (14.0-18.0); LYMPH # 3.3 (1.2-3.4); LYMPH % 44.9 % (22.0-35.0); MEAN CELL VOLUME 97.2 fl (80.0-105.0); MEAN CORPUSCULAR HEMOGLOBIN 33.3 pg (25.0-35.0); MEAN CORPUSCULAR HGB CONC 34.2 g/dl (31.0-37.0); MEAN PLATELET VOLUME 8.3 fl (7.0-11.0); MONO # 0.5 (0.1-0.6); MONO % 6.6 % (1.0-6.0); RBC 4.3 10^6/uL (3.5-6.1); RED CELL DISTRIBUTION WIDTH 12.5 % (11.5-14.5); WHITE BLOOD COUNT 7.4 10^3/uL (4.5-11.0)
[2018-08-17 18:57] LABS: ALB/GLOB RATIO 1.5 (1.1-1.8); ALBUMIN 4.4 g/dL (3.0-4.8); ALT/SGPT 22 U/L (7-56); AST/SGOT 42 U/L (17-59); BLOOD UREA NITROGEN 12 mg/dL (7-21); GFR NON-AFRICAN AMERICAN > 60; LIPASE 193 U/L (23-300)
[2018-08-17 19:03] LABS: TROPONIN I < 0.01 ng/mL
[2018-08-17 19:23] LABS: B-TYPE NATRIURETIC PEPTIDE 47.1 pg/mL (0-450)
[2018-08-17 20:09] VITALS: BP 135/70; RESP 16; O2SAT 97
--- NOTE | 2018-08-18 09:52 | RAD ---
Date of service: 08/17/2018 HISTORY: chest pain COMPARISON: 08/06/2018 TECHNIQUE: 1 view obtained. FINDINGS: LUNGS: No active pulmonary disease. PLEURA: No significant pleural effusion identified, no pneumothorax apparent. CARDIOVASCULAR: No aortic atherosclerotic calcification present. Normal cardiac size. No pulmonary vascular congestion. OSSEOUS STRUCTURES: No significant abnormalities. VISUALIZED UPPER ABDOMEN: Normal. OTHER FINDINGS: None. IMPRESSION: No active disease.
--- NOTE | 2018-08-18 13:25 | CARD ---
APPROVED REPORT Date of service: 08/17/2018 EKG Measurement Heart [id number] CO 130P52 [id number] <Conclusion> Sinus bradycardia Otherwise normal ECG
== END 2018-08-17 20:08 | disposition home or self-care (01) ==
LOC: ED 17:56
DX: R07.9 Chest pain, unspecified (principal); F17.210 Nicotine dependence, cigarettes, uncomplicated; I10 Essential (primary) hypertension
CPT/HCPCS: 71045; 80053; 82550; 83690; 83735; 83880; 84484; 85025; 85378; 93005; 96360; 99283; J7030

== ENCOUNTER 2018-08-23 17:48 | Emergency (ER) | payer MEDICAID ==
[2018-08-23 17:57] VITALS: BMI 19.9
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
[2018-08-23 18:19] VITALS: BP 143/68; PULSE 92; RESP 18; TEMP 98; O2SAT 93
--- NOTE | 2018-08-24 09:40 | RAD ---
Date of service: 08/23/2018 HISTORY: chest pain COMPARISON: Chest radiograph dated 08/17/2018 TECHNIQUE: 1 view obtained. FINDINGS: LUNGS: No active pulmonary disease. PLEURA: No significant pleural effusion identified, no pneumothorax apparent. CARDIOVASCULAR: No aortic atherosclerotic calcifications present. Cardiomediastinal silhouette stably enlarged. OSSEOUS STRUCTURES: Unchanged. VISUALIZED UPPER ABDOMEN: Normal. OTHER FINDINGS: None. IMPRESSION: No active disease.
--- NOTE | 2018-08-24 11:53 | CARD ---
APPROVED REPORT Date of service: 08/23/2018 EKG Measurement Heart [id number] <Conclusion> Poor data quality, interpretation may be adversely affected Normal sinus rhythm Normal ECG
== END 2018-08-23 19:24 | disposition home or self-care (01) ==
LOC: ED 17:48
DX: S20.219A Contusion of unspecified front wall of thorax, initial encounter (principal); Y04.0XXA Assault by unarmed brawl or fight, initial encounter; I47.1 Supraventricular tachycardia; I10 Essential (primary) hypertension; F17.210 Nicotine dependence, cigarettes, uncomplicated; Z91.19 Patient's noncompliance with other medical treatment and regimen
CPT/HCPCS: 71045; 93005; 96372; 99283; J1885